=== PATIENT | male | born 1980 | race Caucasian/White ===

== ENCOUNTER 2018-09-14 09:54 | Emergency (ER) | payer BC ==
[2018-09-14 10:03] VITALS: BMI 44.6
--- NOTE | 2018-09-14 10:33 | PDOC ---
History of Present Illness - General Chief Complaint: Lightheaded Stated Complaint: DEHYDRATION / FATIGUE Time Seen by Provider: 09/14/18 10:32 - History of Present Illness Initial Comments: 09/14/18 11:26 38 year old man with a history of asthma who presents with 3 days of polydipsia and polyuria and 2 days of blurring of vision. He denies chest pain, lightheadedness, fever, n/v/d/c, shortness of breath, abdominal pain, burning with urination or blood in the urine. He denies every having these symptoms before. He denies headache or loss of consciousness. He states he was concerned about symptoms but waited to come to the ED bc he had work. He denies any other symptoms at bedside. PCP: none Past History - Past Medical History Allergies/Adverse Reactions: Allergies Allergy/AdvReac Type Severity Reaction Status Date / Time pollen extracts Allergy Verified 09/14/18 10:03 Home Medications: Ambulatory Orders Lancets 1 each MC BID #14 each 09/14/18 Miscellaneous Medical Supply [Glucometer Device] 1 each SUBCON ASDIR #1 kit Miscellaneous Medical Supply [Glucometer Test Strips #50] 1 each SQ ASDIR #1 box 09/14/18 metFORMIN HCL [Metformin HCl] 500 mg PO BID #14 tablet 09/14/18 metFORMIN HCL [Metformin HCl] 500 mg PO BID 14 Days tablet 09/14/18 COPD: No - Suicide/Smoking/Psychosocial Hx Smoking History: Never smoked *Physical Exam - Vital Signs Last Vital Signs Temp Pulse Resp BP Pulse Ox 97.6 F 92 H 18 140/89 97 09/14/18 10:00 09/14/18 10:00 09/14/18 10:00 09/14/18 10:00 09/14/18 10:00 Moderate Sedation - Procedure Monitoring Vital Signs: Procedure Monitoring Vital Signs Temperature 97.6 F 09/14/18 10:00 Pulse Rate 92 H 09/14/18 10:00 Respiratory Rate 18 09/14/18 10:00 Blood Pressure 140/89 09/14/18 10:00 O2 Sat by Pulse Oximetry (%) 97 09/14/18 10:00 ED Treatment Course - LABORATORY CBC & Chemistry Diagram: 09/14/18 11:08 09/14/18 11:08 Medical Decision Making - Medical Decision Making 09/14/18 11:28 38 year old man with a history of asthma who presents with 3 days of polydipsia and polyuria and 2 days of blurring of vision. He denies chest pain, lightheadedness, fever, n/v/d/c, shortness of breath, abdominal pain, burning with urination or blood in the urine. He denies every having these symptoms before. He denies headache or loss of consciousness. ED Course: consider new onset diabetes, hypercalcemia 09/14/18 11:45 *DC/Admit/Observation/Transfer Diagnosis at time of Disposition: Diabetes mellitus, new onset - Discharge Dispostion Disposition: HOME Condition at time of disposition: Stable Decision to Admit order: No - Prescriptions Prescriptions: Lancets 1 each MC BID #14 each metFORMIN HCL [Metformin HCl] 500 mg PO BID 14 Days tablet metFORMIN HCL [Metformin HCl] 500 mg PO BID #14 tablet Miscellaneous Medical Supply [Glucometer Device] 1 each SUBCON ASDIR #1 kit Miscellaneous Medical Supply [Glucometer Test Strips #50] 1 each SQ ASDIR #1 box - Referrals Referrals: [facility] [place] [facility] [place] [Provider Group] - Patient Instructions Printed Discharge Instructions: Type 2 Diabetes Additional Instructions: You were seen in the ED for complaints of excessive thirst, urination and blurred vision. In the ED you were evaluated with labwork and found to have diabetes. You were prescribed Metformin diabetes medication twice a day. Please check your blood sugar and avoid taking medication if your blood sugar is < 110. A glucometer, test strips and lancet have been sent to your pharmacy please use these as directed to check your blood sugar. You MUST follow up with [facility] tomorrow between 9am - 5pm. You have a work note attached that will dismiss you so that you may attend this appointment. Return to the ED immediately if you experience worsening thirst, urination, blurred vision, lightheadedness, palpitations or loss of consciousness. - Post Discharge Activity Forms/Work/School Notes: Back to Work
[2018-09-14] MEDS ORDERED: SODIUM CHLORIDE 1,000 ML IV SCH ×3 (10:45→14:45)
[2018-09-14 11:31] LABS: BASO % 0.7 % (0-2.0); EOS % 1.9 % (0-4.5); HEMATOCRIT 43.6 % (35.4-49); HEMOGLOBIN 15.2 GM/dL (11.7-16.9); LYMPH % 39.7 % (8-40); MCH 26.7 pg (25.7-33.7); MCHC 34.8 g/dl (32.0-35.9); MEAN CELL VOLUME 76.7 fl (80-96); MEAN PLT VOLUME 8.5 fl (7.5-11.1); MONO % 6.9 % (3.8-10.2); NEUT % 50.8 % (42.8-82.8); PLATELET COUNT 260 K/MM3 (134-434); RBC 5.68 M/mm3 (4.00-5.60); RDW 14.1 % (11.9-15.9); WHITE BLOOD COUNT 6.3 K/mm3 (4.0-10.0)
[2018-09-14 11:57] LABS: ALBUMIN 4.4 g/dl (3.4-5.0); ALK PHOS 192 U/L (45-117); ANION GAP 10 MMOL/L (8-16); BILIRUBIN,TOTAL 0.6 mg/dL (0.2-1); BLOOD UREA NITROGEN 14 mg/dL (7-18); CALCIUM 9.3 mg/dL (8.5-10.1); CHLORIDE 97 mmol/L (98-107); CO2 24 mmol/L (21-32); CREATININE 0.9 mg/dL (0.55-1.3); POTASSIUM 4.1 mmol/L (3.5-5.1); SGOT/AST 41 U/L (15-37); SGPT/ALT 94 U/L (13-61); SODIUM 131 mmol/L (136-145); TOT PROT 7.8 g/dl (6.4-8.2)
[2018-09-14 12:15] LABS: VENOUS PC02 47.3 mmHg (38-52); VENOUS PH 7.32 (7.32-7.42); VENOUS PO2 34.6 mmHg (28-48)
[2018-09-14 12:26] LABS: GLUCOSE,RANDOM 380 mg/dL (74-106)
[2018-09-14 13:11] LABS: MAGNESIUM 2.1 mg/dL (1.8-2.4); PHOSPHOROUS 4.2 mg/dL (2.5-4.9)
--- NOTE | 2018-09-14 13:46 | PDOC ---
Attending Attestation - Resident Resident Name: Radha Giordano - ED Attending Attestation I have performed the following: I have examined & evaluated the patient, The case was reviewed & discussed with the resident, I agree w/resident's findings & plan, Exceptions are as noted - Physicial Exam PE: 09/14/18 13:40 awake alert lungs clear bilaterally heart rrr no mrg abd soft nontender, obese. ext wwp no rash, no edema. nuero alert oriented x 3. moves all four ext. - Medical Decision Making 09/14/18 13:41 38 yo male with no pmhx here with c/o polyuria, polydyspia and blurry vision. no abd pain. no f/c. no mod factors. no n/v diarrhea. does have strong family h/ o diabetes. uncles with diabetes. no cp no sob. 09/14/18 13:43 pt with new onset diabetes. glucose 380, no gap. no renal dysfunction. mild LFT abnormality. HgA1c 9.3. trace acetone. given 2 L NS. d/w admitting team dr curiel. recommending dc with metformin 500 mg bid. pt to be seen day following in [facility]. pt seen by social work in ED to discuss medication, d/w pt regarding diet changes for diabetes. <Rita Byrne - Last Filed: 09/14/18 13:39> - HPI HPI: 09/14/18 13:51 The patient is a 38 year old male, with a significant past medical history of asthma, who presents to the emergency department with 3 days of extreme thirst and polyuria, and blurred vision, for 2 days. The patient notes he didnt come in to the ED earlier because of work, however he became concerned about the blurry vision and decided to come to the ED today. The patient denies any recent fevers, chills, headache or dizziness. Denies any recent nausea, vomit, diarrhea or constipation. Denies any recent chest pain or shortness of breath. Denies any hematuria or dysuria. Allergies: pollen extracts Family Hx of diabetes <Es Gallegos - Last Filed: 09/14/18 13:53> Attestations - Attestations 09/14/18 13:53 Documentation prepared by Es Gallegos, acting as product manager medical device for Rita Byrne MD. <Es Gallegos - Last Filed: 09/14/18 13:53>
[2018-09-14 13:50] LABS: URINE APPEARANCE CLEAR; URINE BILIRUBIN NEGATIVE (<2.0 mg/dL); URINE COLOR YELLOW; URINE GLUCOSE (UA) 3+ (NEGATIVE); URINE KETONE 1+ (NEGATIVE); URINE LEUK ESTERASE NEGATIVE (NEGATIVE); URINE NITRITE NEGATIVE (NEGATIVE); URINE PROTEIN 2+ (NEGATIVE); URINE UROBILINOGEN NEGATIVE mg/dL (0.2-1.0)
[2018-09-14 13:58] LABS: EPI CELLS RARE /HPF (FEW); URINE BACTERIA RARE /hpf (NONE SEEN); URINE MUCUS RARE
[2018-09-14] MEDS ORDERED: INSULIN REGULAR HUMAN 100 UNITS/ML *VIAL IVPUSH ONE (14:42)
[2018-09-14] MEDS ORDERED: INSULIN (NOVOLOG) ASPART 100 UNITS/ML 10ML VIAL ONE (14:57)
[2018-09-14] MEDS ORDERED: metFORMIN HCL 500 MG TABLET (FP) PO ONE (15:39)
[2018-09-14 16:07] VITALS: BP 136/82; PULSE 86; TEMP 98.1
--- NOTE | 2018-09-14 22:04 | EKG ---
Test Reason : Blood Pressure : / mmHG Vent. Rate : 074 BPM Atrial Rate : 074 BPM P-R Int : 172 ms QRS Dur : 142 ms QT Int : 398 ms P-R-T Axes : 017 003 -10 degrees QTc Int : 441 ms NORMAL SINUS RHYTHM RIGHT BUNDLE BRANCH BLOCK T WAVE ABNORMALITY, CONSIDER INFERIOR ISCHEMIA ABNORMAL ECG NO PREVIOUS ECGS AVAILABLE Confirmed by LUIS ARRIAZA MD ([id number]) on 09/14/2018 10:03:51 PM Referred By: Confirmed By:LUIS ARRIAZA MD
== END 2018-09-14 16:08 | disposition home or self-care (01) ==
LOC: JER 09:54
PROC: 3E033VG Introduction of Insulin into Peripheral Vein, Percutaneous Approach (ICD-10-PCS; principal; 2018-09-14)
DX: E11.9 Type 2 diabetes mellitus without complications (principal)
CPT/HCPCS: 36415; 80053; 81003; 81015; 82009; 82803; 82962; 83036; 83690; 83735; 84100; 84443; 85025; 93005; 93010; 99283-25; J7030

== ENCOUNTER 2018-11-25 17:28 | Emergency (ER) | payer BC ==
[2018-11-25] MEDS ORDERED: SODIUM CHLORIDE 1,000 ML IV STA (17:36)
--- NOTE | 2018-11-25 17:36 | PDOC ---
Rapid Medical Evaluation Time Seen by Provider: 11/25/18 17:34 Medical Evaluation: Allergies Allergy/AdvReac Type Severity Reaction Status Date / Time pollen extracts Allergy Verified 09/14/18 10:03 11/25/18 17:34 I have performed a brief in-person evaluation of this patient. The patient presents with a chief complaint of: Nausea with BS-303 at home. h/o NIDDM Pertinent physical exam findings: ABD SNTND. I have ordered the following: labs, urine The patient will proceed to the ED for further evaluation. Discharge Disposition - Diagnosis Nausea - Referrals - Patient Instructions - Post Discharge Activity
[2018-11-25 18:00] VITALS: BP 165/94; PULSE 97; TEMP 97.9
[2018-11-25 19:49] LABS: BASO % 0.6 % (0-2.0); EOS % 0.9 % (0-4.5); HEMATOCRIT 48.2 % (35.4-49); HEMOGLOBIN 15.6 GM/dL (11.7-16.9); LYMPH % 23.9 % (8-40); MCHC 32.4 g/dl (32.0-35.9); MEAN CELL VOLUME 80.3 fl (80-96); MEAN PLT VOLUME 8.8 fl (7.5-11.1); MONO % 5.1 % (3.8-10.2); NEUT % 69.5 % (42.8-82.8); PLATELET COUNT 265 K/MM3 (134-434); RDW 14.5 % (11.9-15.9); WHITE BLOOD COUNT 11.5 K/mm3 (4.0-10.0)
--- NOTE | 2018-11-25 20:08 | PDOC ---
History of Present Illness - General Chief Complaint: Blood Sugar Problem Stated Complaint: DIABETIC Time Seen by Provider: 11/25/18 17:34 - History of Present Illness Initial Comments: 11/25/18 20:01 38 year old man with a history of recently diagnosed DM with recently modified metformin dosage who presents with feeling weak and tired and running out of metformin. The patient recorded a blood sugar of 305. The patient was diagnosed with DM several weeks ago was initally started on 500 metformin BID, changed to 850 and increased to 1000 2 weeks ago, howver patient began experiencing muscle pain in the calves and stopped taking his 1000 dose, as he had some of the 850 left he kept taking the medicatino. He reports that on the 850 dose his am blood sugar ranges from 120-220. He cdoes not have any more metformin 850 and is too nbervous to take the 1000 dose. He has lost 65 pounds since Aug 2018 due to dietary changes after his DM diagnosis. He denies fever, chest pain, shortness of breath, n/v/d/c Admits to some gen abd pain. No other complaints. Past History - Past Medical History Allergies/Adverse Reactions: Allergies Allergy/AdvReac Type Severity Reaction Status Date / Time pollen extracts Allergy Verified 09/14/18 10:03 Home Medications: Ambulatory Orders Lancets 1 each MC BID #14 each 09/14/18 Miscellaneous Medical Supply [Glucometer Device] 1 each SUBCON ASDIR #1 kit Miscellaneous Medical Supply [Glucometer Test Strips #50] 1 each SQ ASDIR #1 box 09/14/18 metFORMIN HCL [Metformin HCl] 500 mg PO BID #14 tablet 09/14/18 metFORMIN HCL [Metformin HCl] 500 mg PO BID 14 Days tablet 09/14/18 metFORMIN HCL [Metformin HCl] 850 mg PO BID #14 tablet 11/25/18 COPD: No Diabetes: Yes - Immunization History Immunization Up to Date: Yes - Suicide/Smoking/Psychosocial Hx Smoking History: Never smoked Hx Alcohol Use: No Drug/Substance Use Hx: No *Physical Exam - Vital Signs Last Vital Signs Temp Pulse Resp BP Pulse Ox 97.9 F 97 H 18 165/94 100 11/25/18 17:35 11/25/18 17:35 11/25/18 17:35 11/25/18 17:35 11/25/18 17:35 ED Treatment Course - LABORATORY CBC & Chemistry Diagram: 11/25/18 19:00 11/25/18 19:00 - ADDITIONAL ORDERS Additional order review: 11/25/18 19:00 RBC 6.00 H MCV 80.3 MCHC 32.4 RDW 14.5 MPV 8.8 Neutrophils % 69.5 D Lymphocytes % 23.9 D Monocytes % 5.1 Eosinophils % 0.9 Basophils % 0.6 - Medications Given in the ED: ED Medications Discontinued Medications Generic Name Dose Route Start Last Admin Trade Name Nirmal PRN Reason Stop Dose Admin Sodium Chloride 1,000 mls @ 1,000 mls/hr 11/25/18 17:36 11/25/18 18:35 Normal Saline - IV 11/25/18 18:35 1,000 mls/hr .Q1H STA Administration Medical Decision Making - Medical Decision Making 11/25/18 20:30 38 year old man with a history of recently diagnosed DM with recently modified metformin dosage who presents with feeling weak and tired and running out of metformin. The patient recorded a blood sugar of 305. The patient was diagnosed with DM several weeks ago was initally started on 500 metformin BID, changed to 850 and increased to 1000 2 weeks ago, howver patient began experiencing muscle pain in the calves and stopped taking his 1000 dose, as he had some of the 850 left he kept taking the medicatino. He reports that on the 850 dose his am blood sugar ranges from 120-220. He cdoes not have any more metformin 850 and is too nbervous to take the 1000 dose. ED Course uncontrolled dm r/o dka vs hhs r/o uti labs w/ glucose 435 anion gap 16 will give ivf dose metformin 850 recheck bs *DC/Admit/Observation/Transfer Diagnosis at time of Disposition: Nausea, Uncontrolled diabetes mellitus - Discharge Dispostion Disposition: HOME Condition at time of disposition: Stable Decision to Admit order: No - Referrals - Patient Instructions Printed Discharge Instructions: DI for Hyperglycemia -- Adult Additional Instructions: You were seen in the ED for complaints of weakness and high blood sugar. In the ED you were evaluated with labwork and treated with IV fluids and Metformin. Your results were showed an improvement in blood sugar. There does not appear to be an acute need for immediate hospitalization. You are advised to follow up with your Primary Care Physician within 1 week. You were given a prescription for Metformin 850 and should take this medication as prescribed until you can be seen by your doctor. Return to the ED immediately if you experience worsening weakness, nausea, fatigue, chest pain, shortness of breath or fever. - Post Discharge Activity
[2018-11-25 20:22] LABS: URINE APPEARANCE CLEAR; URINE BILIRUBIN NEGATIVE (NEGATIVE); URINE COLOR YELLOW; URINE GLUCOSE (UA) 3+ (NEGATIVE); URINE KETONE 4+ (NEGATIVE); URINE LEUK ESTERASE NEGATIVE (NEGATIVE); URINE NITRITE NEGATIVE (NEGATIVE); URINE PROTEIN TRACE (NEGATIVE); URINE UROBILINOGEN 0.2 mg/dL (0.2-1.0)
[2018-11-25 20:25] LABS: ALBUMIN 4.5 g/dl (3.4-5.0); ALK PHOS 178 U/L (45-117); ANION GAP 16 MMOL/L (8-16); BILIRUBIN,TOTAL 0.5 mg/dL (0.2-1); BLOOD UREA NITROGEN 9 mg/dL (7-18); CALCIUM 9.4 mg/dL (8.5-10.1); CHLORIDE 103 mmol/L (98-107); CO2 15 mmol/L (21-32); CREATININE 1.1 mg/dL (0.55-1.3); POTASSIUM 4.1 mmol/L (3.5-5.1); SGOT/AST 8 U/L (15-37); SGPT/ALT 26 U/L (13-61); SODIUM 134 mmol/L (136-145); TOT PROT 8.2 g/dl (6.4-8.2)
[2018-11-25 20:28] LABS: GLUCOSE,RANDOM 435 mg/dL (74-106)
[2018-11-25] MEDS ORDERED: SODIUM CHLORIDE 1,000 ML IV SCH (20:45)
--- NOTE | 2018-11-25 21:52 | PDOC ---
*Physical Exam - Vital Signs Last Vital Signs Temp Pulse Resp BP Pulse Ox 97.9 F 97 H 18 165/94 100 11/25/18 17:35 11/25/18 17:35 11/25/18 17:35 11/25/18 17:35 11/25/18 17:35 ED Treatment Course - LABORATORY CBC & Chemistry Diagram: 11/25/18 19:00 11/25/18 19:00 - ADDITIONAL ORDERS Additional order review: Laboratory Results 11/25/18 11/25/18 19:00 18:29 Sodium 134 L Potassium 4.1 Chloride 103 Carbon Dioxide 15 L Anion Gap 16 BUN 9 Creatinine 1.1 Creat Clearance w eGFR 75.32 Random Glucose 435 H* Calcium 9.4 Total Bilirubin 0.5 AST 8 L ALT 26 Alkaline Phosphatase 178 H Total Protein 8.2 Albumin 4.5 Urine Color Yellow Urine Appearance Clear Urine pH 5.0 Ur Specific Cedar 1.033 Urine Protein Trace Urine Glucose (UA) 3+ H Urine Ketones 4+ H Urine Blood Negative Urine Nitrite Negative Urine Bilirubin Negative Urine Urobilinogen 0.2 Ur Leukocyte Esterase Negative 11/25/18 19:00 RBC 6.00 H MCV 80.3 MCHC 32.4 RDW 14.5 MPV 8.8 Neutrophils % 69.5 D Lymphocytes % 23.9 D Monocytes % 5.1 Eosinophils % 0.9 Basophils % 0.6 - Medications Given in the ED: ED Medications Discontinued Medications Generic Name Dose Route Start Last Admin Trade Name Freq PRN Reason Stop Dose Admin Sodium Chloride 1,000 mls @ 1,000 mls/hr 11/25/18 17:36 11/25/18 18:35 Normal Saline - IV 11/25/18 18:35 1,000 mls/hr .Q1H STA Administration Medical Decision Making - Medical Decision Making 11/25/18 21:51 Pt signed out to me by Dr. Giordano. 38M with recent changes in DM medications who presents with weakness and fatigue. BGM is 435 w/o AG. Will receive 1L fluids and will recheck. 11/25/18 23:42 Rpt FS 309. Will d/c with PCP f/u. *DC/Admit/Observation/Transfer Diagnosis at time of Disposition: Nausea, Uncontrolled diabetes mellitus - Discharge Dispostion Disposition: HOME Condition at time of disposition: Stable - Prescriptions Prescriptions: metFORMIN HCL [Metformin HCl] 850 mg PO BID #14 tablet - Referrals - Patient Instructions Printed Discharge Instructions: DI for Hyperglycemia -- Adult Additional Instructions: You were seen in the ED for complaints of weakness and high blood sugar. In the ED you were evaluated with labwork and treated with IV fluids and Metformin. Your results were showed an improvement in blood sugar. There does not appear to be an acute need for immediate hospitalization. You are advised to follow up with your Primary Care Physician within 1 week. You were given a prescription for Metformin 850 and should take this medication as prescribed until you can be seen by your doctor. Return to the ED immediately if you experience worsening weakness, nausea, fatigue, chest pain, shortness of breath or fever. - Post Discharge Activity
[2018-11-25] MEDS ORDERED: metFORMIN HCL 500 MG TABLET (FP) ONE (21:57)
[2018-11-25] MEDS ORDERED: SODIUM CHLORIDE 0.9% 1000 ML INFUS.BAG IV ONE (22:06)
--- NOTE | 2018-11-25 22:22 | PDOC ---
Documentation entered by Mio Kerr SCRIBE, acting as scribe for Cindy العلي MD. Cindy العلي MD: This documentation has been prepared by the Cirilo ramires Renju, SCRIBE, under my direction and personally reviewed by me in its entirety. I confirm that the documentation accurately reflects all work, treatment, procedures, and medical decision making performed by me. Attending Attestation - Resident Resident Name: Radha Giordano - ED Attending Attestation I have performed the following: I have examined & evaluated the patient, The case was reviewed & discussed with the resident, I agree w/resident's findings & plan, Exceptions are as noted - HPI HPI: 11/25/18 21:36 Patient is a 38 year old male with a past medical history of NIDDM (diagnosed August) who presents to the emergency department for evaluation of elevated blood glucose. Patient reports increasing lethargy in the last week. He currently endorses nausea without emesis. Patient states he has changed his prescribed doses of metformin from 500mg, 850mg, to 1000mg last week. Patient notes he developed bilateral calf pain which started yesterday, prompting him to switch to back to 850mg. He states he visits the ED today for further evaluation due to persistent lethargy and having a BGL of 305 prior to arrival. Endorses 65lb weight loss due to dietary changes since August. Denies chest pain, SOB, vomiting, fevers, and chills. - Physicial Exam PE: 11/25/18 22:09 wnwd 38 yo male with c/o hyperglycemia head ncat neck supple lungs cta b/l cvs [id number] abd nontender,+bs extremities no edema,full range of motion skin warm and dry neuro axox3,ambulatory psych appropriate - Medical Decision Making 11/25/18 22:16 after second liter of IVF,will recheck bgm and discharge
--- NOTE | 2018-11-26 08:28 | EKG ---
Test Reason : Blood Pressure : / mmHG Vent. Rate : 086 BPM Atrial Rate : 086 BPM P-R Int : 144 ms QRS Dur : 148 ms QT Int : 468 ms P-R-T Axes : 010 -39 008 degrees QTc Int : 560 ms NORMAL SINUS RHYTHM LEFT AXIS DEVIATION RIGHT BUNDLE BRANCH BLOCK ABNORMAL ECG WHEN COMPARED WITH ECG OF 14-SEP-2018 11:11, QRS AXIS SHIFTED LEFT QT HAS LENGTHENED Confirmed by SHAUNA CABRERA, SUHAS ([id number]) on 11/26/2018 8:27:57 AM Referred By: Confirmed By:SUHAS VILLATORO MD
== END 2018-11-25 23:58 | disposition home or self-care (01) ==
LOC: JER 17:28
PROC: 3E0337Z Introduction of Electrolytic and Water Balance Substance into Peripheral Vein, Percutaneous Approach (ICD-10-PCS; principal; 2018-11-25)
DX: E11.65 Type 2 diabetes mellitus with hyperglycemia (principal); Z79.84 Long term (current) use of oral hypoglycemic drugs
CPT/HCPCS: 36415; 80053; 81003; 82962; 85025; 87086; 93005; 93010; 99282-25; J7030

== ENCOUNTER 2018-11-27 00:07 | Inpatient (IN) | payer BC ==
--- NOTE | 2018-11-27 01:21 | PDOC ---
History of Present Illness - General Stated Complaint: NAUSEA,VOMITING,PAIN Time Seen by Provider: 11/27/18 01:17 History Source: Patient, Old Records Exam Limitations: No Limitations - History of Present Illness Initial Comments: 11/27/18 02:42 HISTORY OF PRESENT ILLNESS: 38-year-old male recently diagnosed with NIDDM on metformin presents emergency department for evaluation of abdominal pain, nausea and vomiting throughout the day today. He denies fevers and reports blood sugar at home 300. Patient was seen and evaluated in this ER yesterday for similar complaints. Patient was found to be hyperglycemic was given 2 L of fluid and discharged. Patient denies any diarrhea, rectal bleeding, dysuria, hematuria, difficulty with micturition, fevers or chills. Patient endorses 65 pound weight loss over 3 months since changing his diet after diagnosis. No recent travel or sick contacts. PAST MEDICAL HISTORY: NIDDM SURGICAL HISTORY: Denies ALLERGIES: No known drug allergies REVIEW OF SYSTEMS General/Constitutional: Denies fever or chills. Denies weakness, weight change. HEENT: Denies change in vision. Denies ear pain or discharge. Denies sore throat. Cardiovascular: Denies chest pain or shortness of breath. Respiratory: Denies cough, wheezing, or hemoptysis. Gastrointestinal: see HPI Genitourinary: Denies dysuria, frequency, or change in urination. Musculoskeletal: Denies joint or muscle swelling or pain. Denies neck or back pain. Skin and breasts: Denies rash or easy bruising. Neurologic: Denies headache, vertigo, loss of consciousness, or loss of sensation. Psychiatric: Denies depression or anxiety. Endocrine: Denies increased thirst. Denies abnormal weight change. Hematologic/Lymphatic: Denies anemia, easy bleeding, or history of blood clots. Allergic/Immunologic: Denies hives or skin allergy. Denies latex allergy. PHYSICAL EXAM General Appearance: Well-appearing, appropriately dressed. No apparent distress , no intoxication. HEENT: EOMI, PERRLA, normal ENT inspection, normal voice, TMs normal, pharynx normal. No conjunctival pallor. No photophobia, scleral icterus. Neck: Supple. Trachea midline. No tenderness, rigidity, carotid bruit, stridor , lymphadenopathy, or thyromegaly. Respiratory/Chest: Lungs CTAB. No shortness of breath, chest tenderness, respiratory distress, accessory muscle use. No crackles, rales, rhonchi, stridor , wheezing, dullness Cardiovascular: RRR. S1, S2. No JVD, murmur, bradycardia, tachycardia. Vascular Pulses: Dorsalis-Pedis (R): 2+, Dorsalis-Pedis (L): 2+ Gastrointestinal/Abdominal: Normal bowel sounds. Abdomen soft, non-distended. No tenderness or rebound tenderness. No organomegaly, pulsatile mass, guarding, hernia, hepatomegaly, splenomegaly. Lymphatic: No adenopathy, tenderness. Musculoskeletal/Extremities: Normal inspection. FROM of all extremities, normal capillary refill. Pelvis Stable. No CVA tenderness. No tenderness to extremities, pedal edema, swelling, erythema or deformity. Integumentary: Appropriate color, dry, warm. No cyanosis, erythema, jaundice or rash Neurologic: shells inspector II-XII intact. Fully oriented, alert. Appropriate mood/affect. Motor strength 5/5. No appreciable EOM palsy, facial droop or sensory deficit. Past History - Past Medical History Allergies/Adverse Reactions: Allergies Allergy/AdvReac Type Severity Reaction Status Date / Time pollen extracts Allergy Verified 11/27/18 01:42 Home Medications: Ambulatory Orders metFORMIN HCL [Metformin HCl] 850 mg PO BID #14 tablet 11/25/18 COPD: No Diabetes: Yes - Immunization History Immunization Up to Date: Yes - Suicide/Smoking/Psychosocial Hx Smoking History: Never smoked Hx Alcohol Use: No Drug/Substance Use Hx: No ED Treatment Course - LABORATORY CBC & Chemistry Diagram: 11/27/18 09:27 11/27/18 19:00 Medical Decision Making - Critical Care Time Total Critical Care Time (minutes): 45 Critical Care Statement: The care of this patient involved high complexity decision making to prevent further life threatening deterioration of the patient 's condition and/or to evaluate & treat vital organ system(s) failure or risk of failure. - Medical Decision Making 11/27/18 02:45 A/P: 38-year-old male with abdominal pain nausea and vomiting for 1 day Normoactive bowel sounds Abdomen soft nontender nondistended Differential diagnosis includes but is not limited to- hyperglycemia, honk, DKA , gastroparesis, mesenteric ischemia, colitis Mesenteric ischemia less likely given patient has a benign abdominal exam Labs including acetone and VBG BGM Lactic acid Urine Normal saline 1 IV Reassess 11/27/18 04:43 Case discussed with ICU resident Dr. Connlely who will evaluate patient. Case has been discussed with Dr. Sol of the hospitalist team. Patient is accepted to their service pending ICU evaluation for placement. Patient's repeat fingerstick is 261. 11/27/18 04:46 *DC/Admit/Observation/Transfer Diagnosis at time of Disposition: DKA (diabetic ketoacidoses) Qualifiers: Diabetes mellitus type: type 2 Diabetes mellitus complication detail: without coma Qualified Code(s): E11.10 - Type 2 diabetes mellitus with ketoacidosis without coma - Discharge Dispostion Condition at time of disposition: Fair Decision to Admit order: Yes - Referrals - Patient Instructions - Post Discharge Activity
--- NOTE | 2018-11-27 01:22 | PDOC ---
ED Treatment Course - LABORATORY CBC & Chemistry Diagram: 11/27/18 02:09 11/27/18 02:09 Medical Decision Making - Medical Decision Making 11/27/18 01:21 Patient seen by the advanced practice provider under my direct supervision. Ancillary testing reviewed as necessary. I agree with plan as outlined by the advanced practice provider. *DC/Admit/Observation/Transfer Diagnosis at time of Disposition: Vomiting - Discharge Dispostion Condition at time of disposition: Fair - Referrals - Patient Instructions - Post Discharge Activity
[2018-11-27] MEDS ORDERED: SODIUM CHLORIDE 1,000 ML IV STA ×2 (01:28→03:28)
[2018-11-27 02:22] LABS: VENOUS PC02 27.7 mmHg (41-51); VENOUS PO2 40.8 mmHg (30-40)
[2018-11-27 02:24] LABS: BASO % 0.7 % (0-2.0); EOS % 0.1 % (0-4.5); HEMOGLOBIN 15.1 GM/dL (11.7-16.9); LYMPH % 14.4 % (8-40); MCH 25.9 pg (25.7-33.7); MCHC 32.2 g/dl (32.0-35.9); MEAN CELL VOLUME 80.4 fl (80-96); MEAN PLT VOLUME 9.4 fl (7.5-11.1); MONO % 5.8 % (3.8-10.2); PLATELET COUNT 284 K/MM3 (134-434); RBC 5.84 M/mm3 (4.00-5.60); RDW 14.9 % (11.9-15.9); WHITE BLOOD COUNT 14.9 K/mm3 (4.0-10.0)
[2018-11-27 02:33] LABS: VENOUS PH 7.14 (7.31-7.41)
[2018-11-27 03:43] LABS: ALBUMIN 4.4 g/dl (3.4-5.0); ALK PHOS 171 U/L (45-117); ANION GAP 19 MMOL/L (8-16); BILIRUBIN,TOTAL 0.5 mg/dL (0.2-1); BLOOD UREA NITROGEN 5 mg/dL (7-18); CHLORIDE 106 mmol/L (98-107); CO2 10 mmol/L (21-32); POTASSIUM 4.1 mmol/L (3.5-5.1); SGOT/AST 9 U/L (15-37); SGPT/ALT 26 U/L (13-61); SODIUM 134 mmol/L (136-145); TOT PROT 8.3 g/dl (6.4-8.2)
[2018-11-27 03:44] LABS: GLUCOSE,RANDOM 353 mg/dL (74-106)
[2018-11-27 03:45] LABS: ACETONE SERUM POSITIVE MODERATE 2+ (NEGATIVE)
[2018-11-27] MEDS ORDERED: INSULIN REGULAR HUMAN 100 UNITS/ML *VIAL SQ ONE (03:49)
[2018-11-27] MEDS ORDERED: INSULIN REGULAR HUMAN 100 UNITS/ML *VIAL IVPUSH ONE (03:49)
[2018-11-27] MEDS ORDERED: INSULIN REGULAR 100 UNITS in SODIUM CHLORIDE 99 ML IVPB SCH (04:00)
[2018-11-27] MEDS ORDERED: INSULIN REGULAR HUMAN 100 UNITS/ML *VIAL ONE ×2 (04:04→04:20)
--- NOTE | 2018-11-27 04:30 | PN ---
Teaching Attending Note Name of Resident: Felipe Cash ATTENDING PHYSICIAN STATEMENT I saw and evaluated the patient. I reviewed the resident's note and discussed the case with the resident. I agree with the resident's findings and plan as documented. SUBJECTIVE: Patient is a 38-year-old man with PMH of Asthma and recently diagnosed with NIDDM (August 2018) on metformin presents to the ER for evaluation of abdominal pain, nausea and vomiting throughout the day today. He denies fevers and reports blood sugar at home 300. Patient was seen and evaluated in this ER yesterday for similar complaints. Patient was found to be hyperglycemic was given 2 L of fluid and discharged. Patient denies any diarrhea, rectal bleeding , dysuria, hematuria, difficulty with urination, fevers or chills. Patient says he has had unintended 65 pound weight loss over 3 months since changing his diet after the diabetes diagnosis. Started having upper abdominal and chest pain after many bouts of vomiting. Nonsmoker and denies illicit drug use. with 3 children and works as a building maintenance controller for [employer]. OBJECTIVE: Alert Vital Signs Period Temp Pulse Resp BP Sys/Estrada Pulse Ox Last 24 Hr 97.5 F 101 16 133/91 99-99 HEENT: No Jaundice, eye redness or discharge, PERRLA, EOMI. Normocephalic, atraumatic. External ears are normal and hearing is grossly intact. No nasal discharge. Neck: Supple, nontender. No palpable adenopathy or thyromegaly. No JVD Chest: Good effort. Clear to auscultation and percussion. Heart: Regular. No S3, rub or murmur Abdomen: Not distended, soft, nontender and no HSM. No rebound or guarding. Normal bowel sounds. Ext: Peripheral pulses intact. No leg edema. Skin: Warm and dry. No petechiae, rash or ecchymosis. Neuro: Alert. Oriented x3. CN 2-12 grossly intact. Sensation grossly intact in all four extremities and DTR are symmetric. Psych: Appropriate mood and affect. Good insight. Current Medications Generic Name Dose Route Start Last Admin Trade Name Freq PRN Reason Stop Dose Admin Insulin Human Regular 100 100 mls @ 10.43 mls/hr 11/27/18 04:00 units/ Sodium Chloride IVPB TITR BRITTNY Protocol 0.1 UNITS/KG/HR Potassium Chloride 10 meq 11/27/18 04:23 Potassium Chloride 10 Meq Premix Ivpb - IVPB 11/27/18 05:24 Q1H [facility] Home Medications Medication Instructions Recorded metFORMIN HCL [Metformin HCl] 850 mg PO BID #14 tablet 11/25/18 Abnormal Lab Results 11/27/18 11/27/18 11/27/18 02:02 02:09 02:57 WBC 14.9 H RBC 5.84 H Absolute Neuts (auto) 11.8 H VBG pH 7.14 L* POC VBG pCO2 27.7 L POC VBG pO2 40.8 H VBG HCO3 9.1 L VBG Base Excess -19.3 L Sodium 134 L Carbon Dioxide 10 L Anion Gap 19 H BUN 5 L Random Glucose 353 H* AST 9 L Alkaline Phosphatase 171 H Total Protein 8.3 H ASSESSMENT AND PLAN: 1. DKA - No obvious precipitating factor. Will hold metformin and treat with IV insulin drip, IV fluids and monitor BMP, electrolytes and glucose according to the DKA protocol in the ICU. Commence treatment with IV KCL, IV protonix and get CXR and urinalysis. Leukocytosis likely due to stress. EKG shows NSR with RBBB with no significant ST-T wave changes. Will provide comprehensive diabetes care with patient teaching and counseling about the importance of adherence to prescribed diabetes regimen, euglycemia, eye care and foot care. Consult Endocrine. Patient alerted that he will need a regimen that includes insulin upon discharge. 2. Obesity Counseled on the risks associated with obesity. Will provide patient all the necessary assistance, counseling and positive reinforcement to facilitate weight loss. Consult platform stapler. 3. Undiagnosed Hypertension - Will monitor BP closely. May need to start antihypertensive drugs before discharge - preferably an ACEI or ARB. In the meantime nonpharmacologic measures to control hypertension like weight loss, salt restriction and exercise discussed. 4. DVT prophylaxis - Lovenox 40 mg SQ q 24 hours. 5. Advance directives - Full code
[2018-11-27] MEDS ORDERED: ONDANSETRON 4 MG/2 ML VIAL IVPUSH PRN (04:56)
--- NOTE | 2018-11-27 04:56 | CONSULT ---
Consultation: REQUESTING PROVIDER:ED team CONSULT REQUEST: We have been asked to medically evaluate this patient for (DKA) . HISTORY OF PRESENT ILLNESS: 38 year old male with recent diagnosis of DM on metformin BID presented to ED with one day history of sever abdominal pain , N/V x5 and small bloody vomiting was found to have BGM 350, Acetone positive and Anion gap of 18 admitted to ICU for DKA treatment denies any fever, chills, chest pain , cough, recent cold, denies any D/C or urinary symptoms reports 60 pound weight loss in last 2 months , generalized weakness ,and fatigue , polyuria , polydipsea denies any sick contact , his daughter has recent allergy to pollen PMH: DM PSH: appendectomy 2016 FH: Father cardiac Bypass , Mother HTN SH: denies smoking , drink beers socially last drink aonth ago, denies any drug abuse work in [employer] , with 3 kids Allergies: NKDA Meds: metformin 850 BID REVIEW OF SYSTEMS: CONSTITUTIONAL: Absent: fever, chills, diaphoresis, generalized weakness, malaise, loss of appetite, weight change HEENT: Absent: rhinorrhea, nasal congestion, throat pain, throat swelling, difficulty swallowing, mouth swelling, ear pain, eye pain, visual changes CARDIOVASCULAR: Absent: chest pain, syncope, palpitations, irregular heart rate, lightheadedness , peripheral edema RESPIRATORY: Absent: cough, shortness of breath, dyspnea with exertion, orthopnea, wheezing, stridor, hemoptysis GASTROINTESTINAL: Absent: abdominal pain, abdominal distension, nausea, vomiting, diarrhea, constipation, melena, hematochezia GENITOURINARY: Absent: dysuria, frequency, urgency, hesitancy, hematuria, flank pain, genital pain MUSCULOSKELETAL: Absent: myalgia, arthralgia, joint swelling, back pain, neck pain SKIN: Absent: rash, itching, pallor HEMATOLOGIC/IMMUNOLOGIC: Absent: easy bleeding, easy bruising, lymphadenopathy, frequent infections ENDOCRINE: Absent: unexplained weight gain, unexplained weight loss60 pound in 2 months , heat intolerance, cold intolerance NEUROLOGIC: Absent: headache, focal weakness or paresthesias, dizziness, unsteady gait, seizure, mental status changes, bladder or bowel incontinence PSYCHIATRIC: Absent: anxiety, depression, suicidal or homicidal ideation, hallucinations. PHYSICAL EXAMINATION Vital Signs - 24 hr 11/27/18 11/27/18 00:07 03:20 Temperature 97.5 F L Pulse Rate 101 H Respiratory 16 Rate Blood Pressure 133/91 O2 Sat by Pulse 99 99 Oximetry (%) GENERAL: Awake, alert, and fully oriented, in no acute distress. HEAD: Normal with no signs of trauma. EYES: Pupils equal, round and reactive to light, extraocular movements intact, EARS, NOSE, THROAT: Ears normal, nares patent, oropharynx clear without exudates. Moist mucous membranes. NECK: supple LUNGS: Breath sounds equal, clear to auscultation bilaterally. No wheezes, and no crackles. HEART: Regular rate and rhythm, normal S1 and S2 without murmur, rub or gallop. ABDOMEN: obese , Soft, diffuse tenderness , normoactive bowel sounds, MUSCULOSKELETAL: Normal range of motion at all joints. No bony deformities or tenderness. No CVA tenderness. UPPER EXTREMITIES: 2+ pulses, warm, well-perfused. No cyanosis. No clubbing. Cap refill <2 seconds. No peripheral edema. LOWER EXTREMITIES: 2+ pulses, warm, well-perfused. No calf tenderness. No peripheral edema. NEUROLOGICAL: no focal deficit . Normal speech. Normal gait. PSYCHIATRIC: Cooperative. SKIN: Warm, dry, normal turgor, Laboratory Results - last 24 hr 11/27/18 11/27/18 11/27/18 02:02 02:09 02:09 WBC 14.9 H RBC 5.84 H Hgb 15.1 Hct 47.0 MCV 80.4 MCH 25.9 MCHC 32.2 RDW 14.9 Plt Count 284 MPV 9.4 Absolute Neuts (auto) 11.8 H Neutrophils % 79.0 Lymphocytes % 14.4 D Monocytes % 5.8 Eosinophils % 0.1 D Basophils % 0.7 Nucleated RBC % 0 VBG pH 7.14 L* POC VBG pCO2 27.7 L POC VBG pO2 40.8 H VBG HCO3 9.1 L VBG O2 Sat (John) 71.4 VBG Base Excess -19.3 L Sodium Cancelled Potassium Cancelled Chloride Cancelled Carbon Dioxide Cancelled Anion Gap Cancelled BUN Cancelled Creatinine Cancelled Est GFR (CKD-EPI)AfAm Cancelled Est GFR (CKD-EPI)NonAf Cancelled POC Glucometer Random Glucose Cancelled Lactic Acid Calcium Cancelled Total Bilirubin Cancelled AST Cancelled ALT Cancelled Alkaline Phosphatase Cancelled Total Protein Cancelled Albumin Cancelled Acetone, Qual 11/27/18 11/27/18 11/27/18 02:09 02:57 02:57 WBC RBC Hgb Hct MCV MCH MCHC RDW Plt Count MPV Absolute Neuts (auto) Neutrophils % Lymphocytes % Monocytes % Eosinophils % Basophils % Nucleated RBC % VBG pH POC VBG pCO2 POC VBG pO2 VBG HCO3 VBG O2 Sat (John) VBG Base Excess Sodium 134 L Potassium 4.1 Chloride 106 Carbon Dioxide 10 L Anion Gap 19 H BUN 5 L Creatinine 1.0 Est GFR (CKD-EPI)AfAm 110.94 Est GFR (CKD-EPI)NonAf 95.72 POC Glucometer Random Glucose 353 H* Lactic Acid 1.3 Calcium 9.0 Total Bilirubin 0.5 AST 9 L ALT 26 Alkaline Phosphatase 171 H Total Protein 8.3 H Albumin 4.4 Acetone, Qual Cancelled Positive moderate 2+ 11/27/18 11/27/18 03:05 04:33 WBC RBC Hgb Hct MCV MCH MCHC RDW Plt Count MPV Absolute Neuts (auto) Neutrophils % Lymphocytes % Monocytes % Eosinophils % Basophils % Nucleated RBC % VBG pH POC VBG pCO2 POC VBG pO2 VBG HCO3 VBG O2 Sat (John) VBG Base Excess Sodium Potassium Chloride Carbon Dioxide Anion Gap BUN Creatinine Est GFR (CKD-EPI)AfAm Est GFR (CKD-EPI)NonAf POC Glucometer 336 261 Random Glucose Lactic Acid Calcium Total Bilirubin AST ALT Alkaline Phosphatase Total Protein Albumin Acetone, Qual Active Medications Generic Name Dose Route Start Last Admin Trade Name Freq PRN Reason Stop Dose Admin Insulin Human Regular 100 100 mls @ 10.43 mls/hr 11/27/18 04:00 units/ Sodium Chloride IVPB TITR BRITTNY Protocol 0.1 UNITS/KG/HR Potassium Chloride 10 meq/ 1,005 mls @ 125 mls/hr 11/27/18 05:00 Dextrose/Sodium Chloride IVPB ASDIR BRITTNY Potassium Chloride 10 meq 11/27/18 04:23 Potassium Chloride 10 Meq Premix Ivpb - IVPB 11/27/18 05:24 Q1H BRITTNY CBC, BMP 11/27/18 02:09 11/27/18 02:57 ASSESSMENT/PLAN: 38 year old male with recent diagnosis of DM on metformin BID presented to ED with one day history of sever abdominal pain , N/V x5 and small bloody vomiting was found to have BGM 350, Acetone positive and Anion gap of 18 admitted to ICU for DKA treatment # DKA due to new onset DM diagnosis vs r.o infection vs non comliance * recently diagnosed with diabetes on Sep 10, started on metformin 500 BID increased to 850 BID , he could not tolerate 1000BID * last A1c 9.1 * presented today with one day history of sever abdominal pain N/V x5 followed by bloody vomiting small cup in amount * GLucose 350 and acteone positive , K 4.1 * given NS 2 L bolus in ED and IV insulin 10 units , repeat BGM 251 will start pt on D5/NS with potassium @ 150 * start insulin drip @ 0.1 /kg/hr till gap closed and bridge him with Ins SQ * start feeding as tolerated (denies any current nausea ) * BGM Q 1 hr * BMP Q2-4 hr with close monitor to K * I gave 20 KCl IV in addition to20 kcl with fluids * UA ,urine tox , urine ketone , beta hydroxy buterate * serum ketone , * osmolality serum and urine * cxr * nuclear monitoring technician, capnography, pulse oxy monitor # Long QTC 556 * avoid meds that cause prlongation Zofran , metoclopramide # Leuckocytosis reactive vs unknown source of infection * pt is afebrile, monitor of abx # FEN * D5/NS with Kcl * monitor lytes * Diabetic diet # DVTS proph scds , early ambulation , lovenox 40 SQ daily # GI proph : [place] # Dispo * Monitor in ICU Dispo: We will continue to follow the patient. Thank you for this consultative opportunity. Visit type - Emergency Visit Emergency Visit: Yes ED Registration Date: 11/27/18 Care time: The patient presented to the Emergency Department on the above date and was hospitalized for further evaluation of their emergent condition. - New Patient This patient is new to me today: Yes Date on this admission: 11/27/18 - Critical Care Critical Care patient: Yes Total Critical Care Time (in minutes): 45 Critical Care Statement: The care of this patient involved high complexity decision making to prevent further life threatening deterioration of the patient 's condition and/or to evaluate & treat vital organ system(s) failure or risk of failure.
[2018-11-27] MEDS ORDERED: POTASSIUM CHLORIDE 10 MEQ in DEXTROSE 5%-NORMAL SALINE 1,000 ML IVPB SCH ×2 (05:00→05:09)
--- NOTE | 2018-11-27 05:19 | HP ---
CHIEF COMPLAINT: abdominal pain and nausea PCP: Javad HISTORY OF PRESENT ILLNESS: Patient is a 38 y/o male with a history of NIDDM (recent diagnosis in August) who presents today for abdominal pain and nausea. He has been feeling like this for the last few days and it has been worsening. He knows his sugars have been high and he has been taking his metformin. Patient has no family history of diabetes. He denies any other medical problems. He has been having trouble keeping food down because of the nausea. Denies chest pain, headache, shortness of breath, fever, or chills. ER course was notable for: (1)IV insulin 10 (2) (3) Recent Travel: denies PAST MEDICAL HISTORY: NIDDM PAST SURGICAL HISTORY: appendectomy Social History: Smoking: denies Alcohol: denies Drugs: denies Family History: Allergies pollen extracts Allergy (Verified 11/27/18 01:42) HOME MEDICATIONS: Home Medications Medication Instructions Recorded metFORMIN HCL [Metformin HCl] 850 mg PO BID #14 tablet 11/25/18 REVIEW OF SYSTEMS presents with: abdominal pain, nausea, one episode of NBNB vomiting denies: chest pain, shortness of breath, dizziness, fever, chills PHYSICAL EXAMINATION Vital Signs Temperature 97.5 F L 11/27/18 00:07 Pulse Rate 101 H 11/27/18 00:07 Respiratory Rate 16 11/27/18 00:07 Blood Pressure 133/91 11/27/18 00:07 O2 Sat by Pulse Oximetry (%) 99 11/27/18 03:20 GENERAL: Awake, alert, and fully oriented, in no acute distress. HEAD: Normal with no signs of trauma. EYES: Pupils equal, round and reactive to light, extraocular movements intact, EARS, NOSE, THROAT: Moist mucous membranes. LUNGS: Breath sounds equal, clear to auscultation bilaterally. No wheezes, and no crackles. No accessory muscle use. HEART: Regular rate and rhythm, normal S1 and S2 without murmur, rub or gallop. ABDOMEN: Soft, nontender, not distended, normoactive bowel sounds, no guarding, no rebound, no masses. No CVA tenderness. LOWER EXTREMITIES: 2+ pulses, warm, well-perfused. No calf tenderness. No peripheral edema. NEUROLOGICAL: Cranial nerves II-XII intact. Normal speech. Normal gait. PSYCHIATRIC: Cooperative. Good eye contact. Appropriate mood and affect. SKIN: Warm, dry, normal turgor, no rashes or lesions noted, normal capillary refill. CBCD WBC 14.9 K/mm3 (4.0-10.0) H 11/27/18 02:09 RBC 5.84 M/mm3 (4.00-5.60) H 11/27/18 02:09 Hgb 15.1 GM/dL (11.7-16.9) 11/27/18 02:09 Hct 47.0 % (35.4-49) 11/27/18 02:09 MCV 80.4 fl (80-96) 11/27/18 02:09 MCHC 32.2 g/dl (32.0-35.9) 11/27/18 02:09 RDW 14.9 % (11.9-15.9) 11/27/18 02:09 Plt Count 284 K/MM3 (134-434) 11/27/18 02:09 MPV 9.4 fl (7.5-11.1) 11/27/18 02:09 CMP Sodium 134 mmol/L (136-145) L 11/27/18 02:57 Potassium 4.1 mmol/L (3.5-5.1) 11/27/18 02:57 Chloride 106 mmol/L (98-107) 11/27/18 02:57 Carbon Dioxide 10 mmol/L (21-32) L 11/27/18 02:57 Anion Gap 19 MMOL/L (8-16) H 11/27/18 02:57 BUN 5 mg/dL (7-18) L 11/27/18 02:57 Creatinine 1.0 mg/dL (0.55-1.3) 11/27/18 02:57 Calcium 9.0 mg/dL (8.5-10.1) 11/27/18 02:57 Total Bilirubin 0.5 mg/dL (0.2-1) 11/27/18 02:57 AST 9 U/L (15-37) L 11/27/18 02:57 ALT 26 U/L (13-61) 11/27/18 02:57 Alkaline Phosphatase 171 U/L (45-117) H 11/27/18 02:57 Total Protein 8.3 g/dl (6.4-8.2) H 11/27/18 02:57 Albumin 4.4 g/dl (3.4-5.0) 11/27/18 02:57 ASSESSMENT/PLAN: Patient is a 38 y/o male with a history of NIDDM who is admitted for DKA. #DKA - anion gap acidosis 19, glucose 353, k 4.1, acetone 2+ positive - given 10 IV insulin, on insulin drip - 20 meq K ordered - repeat BGM finger stick 260, D5 1/2 NS @ 150 - BGM q1h - BMP q 2h , monitor Bicarb closely - continue insulin drip until anion gap closed, at that point initiate subq - consult Dr. Stock, patient needs diabetic teaching and follow up - f/u UA and CXR to r/o infectious source, WBC elevated at 14.9 likely 2/2 to stress - EKG RBB, no ST elevations or changes - QTC > 500, do not give Zofran #DVT ppx - Lovenox 40 sq daily FEN - daibetic diet - continue fluids D5 1/2 NS @ 150 - monitor K closely - monitor BP Dispo: monitor in ICU while on insulin drip Visit type - Emergency Visit Emergency Visit: Yes ED Registration Date: 11/27/18 Care time: The patient presented to the Emergency Department on the above date and was hospitalized for further evaluation of their emergent condition. - New Patient This patient is new to me today: Yes Date on this admission: 11/27/18 - Critical Care Critical Care patient: Yes Total Critical Care Time (in minutes): 35 Critical Care Statement: The care of this patient involved high complexity decision making to prevent further life threatening deterioration of the patient 's condition and/or to evaluate & treat vital organ system(s) failure or risk of failure.
[2018-11-27] MEDS ORDERED: D5-NS + 20 MEQ KCL - 20 MEQ/1,000 ML INFUS.BAG IV SCH ×2 (05:30→14:13)
[2018-11-27] MEDS ORDERED: KCL 10 MEQ IVPB 10 MEQ/100 ML INFUS.BAG IVPB ONE ×2 (05:59→08:07)
[2018-11-27] MEDS: POTASSIUM CHLORIDE 10 MEQ PREMIX IVPB (POTASSIUM RIDER) IVPB SCH ×2 (06:02→08:17)
[2018-11-27 06:03] LABS: ANION GAP 15 MMOL/L (8-16); BLOOD UREA NITROGEN 4 mg/dL (7-18); CALCIUM 8.1 mg/dL (8.5-10.1); CHLORIDE 112 mmol/L (98-107); CO2 11 mmol/L (21-32); CREATININE 0.8 mg/dL (0.55-1.3); GLUCOSE,RANDOM 204 mg/dL (74-106); PHOSPHOROUS 1.3 mg/dL (2.5-4.9); POTASSIUM 3.5 mmol/L (3.5-5.1); SODIUM 139 mmol/L (136-145)
[2018-11-27 06:07] LABS: COCAINE, UR NEGATIVE ng/ml (CUTOFF=300); METHADONE, UR NEGATIVE ng/ml (CUTOFF=300); OPIATES, URI NEGATIVE ng/ml (CUTOFF=300); PHENCYCLIDINE,URINE NEGATIVE ng/ml (CUTOFF=25); URINE AMPHETAMINES NEGATIVE ng/ml (CUTOFF=500); URINE BARBITURATES NEGATIVE ng/ml (CUTOFF=200); URINE BENZODIAZEPINES NEGATIVE ng/ml (CUTOFF=200)
[2018-11-27] MEDS ORDERED: MAG HYDROX/AL HYDROX/SIMETH 30 ML UNIT-DOSE CUP PO ONE (06:15)
[2018-11-27 06:17] LABS: EPI CELLS 0.4 /HPF (0-5/HPF); URINE APPEARANCE CLEAR; URINE BACTERIA 0.3 /hpf (NEGATIVE); URINE BILIRUBIN NEGATIVE (NEGATIVE); URINE CASTS 3 /lpf (0-8); URINE COLOR YELLOW; URINE GLUCOSE (UA) 3+ (NEGATIVE); URINE KETONE 4+ (NEGATIVE); URINE LEUK ESTERASE NEGATIVE (NEGATIVE); URINE NITRITE NEGATIVE (NEGATIVE); URINE PROTEIN TRACE (NEGATIVE); URINE RBC 2 /hpf (0-4); URINE UROBILINOGEN 0.2 mg/dL (0.2-1.0); URINE WBC 0 /hpf (0-5)
[2018-11-27 07:33] LABS: ACETONE SERUM POSITIVE MODERATE 2+ (NEGATIVE)
[2018-11-27 08:47] LABS: OSMOLALITY,SERUM 299 mosm/kg (278-305)
[2018-11-27] MEDS: KCL 10 MEQ IVPB 10 MEQ/100 ML INFUS.BAG IVPB SCH ×2 (08:48→08:49)
[2018-11-27] MEDS: INSULIN SLIDING SCALE (NOVOLOG) 1 VIAL SQ SCH ×3 (09:47→17:11)
[2018-11-27 09:56] LABS: HEMATOCRIT 44.3 % (35.4-49); HEMOGLOBIN 14.3 GM/dL (11.7-16.9); MCH 26.1 pg (25.7-33.7); MCHC 32.4 g/dl (32.0-35.9); MEAN CELL VOLUME 80.7 fl (80-96); MEAN PLT VOLUME 8.9 fl (7.5-11.1); PLATELET COUNT 209 K/MM3 (134-434); RBC 5.49 M/mm3 (4.00-5.60); RDW 14.8 % (11.9-15.9); WHITE BLOOD COUNT 11.4 K/mm3 (4.0-10.0)
[2018-11-27] MEDS ORDERED: MUPIROCIN 2% TOPICAL OINTMENT FOR DECOLONIZATION NS SCH (10:00)
[2018-11-27] MEDS ORDERED: ENOXAPARIN NA (PORCINE) 40 MG/0.4 ML DISP.SYRIN SQ SCH (10:00)
[2018-11-27 10:22] LABS: CALCIUM 8.6 mg/dL (8.5-10.1); CREATININE 0.9 mg/dL (0.55-1.3); POTASSIUM 3.3 mmol/L (3.5-5.1)
[2018-11-27] MEDS ORDERED: ENOXAPARIN NA (PORCINE) 40 MG/0.4 ML DISP.SYRIN SQ ONE (11:35)
[2018-11-27] MEDS ORDERED: INSULIN (NOVOLOG) ASPART 100 UNITS/ML 10ML VIAL ONE ×2 (12:01→20:02)
[2018-11-27] MEDS ORDERED: INSULIN (LEVEMIR) 100 UNITS/ML UNITS SQ ONE (14:10)
[2018-11-27 16:03] LABS: CALCIUM 8.5 mg/dL (8.5-10.1); MAGNESIUM 2.2 mg/dL (1.8-2.4); PHOSPHOROUS 1.8 mg/dL (2.5-4.9); POTASSIUM 3.6 mmol/L (3.5-5.1)
[2018-11-27 16:42] VITALS: BMI 35.9
[2018-11-27] MEDS: INSULIN (NOVOLOG) ASPART 100 UNITS/ML 10ML VIAL SQ SCH (17:12)
--- NOTE | 2018-11-27 17:20 | PN ---
Progress Note, Physician Chief Complaint: nausea, vomiting, abdominal pain History of Present Illness: patient feeling better, still nausea, but no vomiting and abdominal pain has improved. off insulin gtt, and eating. no other symptoms - Current Medication List Current Medications: Active Medications Enoxaparin Sodium (Lovenox -) 40 mg SQ DAILY [facility] Dextrose/Sodium Chloride (Dextrose 5%-Normal Saline+20 Meq Kcl -) 20 meq in 1, 000 mls @ 150 mls/hr IV ASDIR [facility] Last Admin: 11/27/18 15:21 Dose: 150 mls/hr Insulin Aspart (Novolog Vial Sliding Scale -) 1 vial SQ Q4H [facility]; Protocol Last Admin: 11/27/18 17:11 Dose: 8 units Insulin Aspart (Novolog Vial) 5 units SQ TIDAC [facility] Last Admin: 11/27/18 17:12 Dose: Not Given - Objective Vital Signs: Vital Signs Temperature 98.4 F 11/27/18 14:30 Pulse Rate 86 11/27/18 14:30 Respiratory Rate 17 11/27/18 14:30 Blood Pressure 145/80 11/27/18 14:30 O2 Sat by Pulse Oximetry (%) 99 11/27/18 14:30 Constitutional: Yes: Well Nourished, No Distress, Calm Cardiovascular: Yes: WNL, Regular Rate and Rhythm Respiratory: Yes: WNL, Regular, CTA Bilaterally Gastrointestinal: Yes: WNL, Normal Bowel Sounds, Soft, Abdomen, Obese Musculoskeletal: Yes: WNL Extremities: Yes: WNL Edema: No Labs: CBC, BMP 11/27/18 09:27 11/27/18 14:30 - ....Imaging Chest X-ray: Report Reviewed, Image Reviewed Problem List - Problems (1) DKA (diabetic ketoacidoses) Code(s): E11.10 - TYPE 2 DIABETES MELLITUS WITH KETOACIDOSIS WITHOUT COMA Qualifiers: Diabetes mellitus type: type 2 Diabetes mellitus complication detail: without coma Qualified Code(s): E11.10 - Type 2 diabetes mellitus with ketoacidosis without coma Assessment/Plan 38 year old male with DM2, newly diagnosed in August 2018, started on metformin who presented to ED for nausea, vomiting and abdominal pain. 1) DKA -anion gap closed, bicarb up, tolerating diet, off insulin gtt this AM, ok for medical floor -transition to subq insulin-basal/bolus regimen, given 10 units levemir this AM , another 10 units ordered for tonight, and 5 units fast acting TIDCC with additional sliding scale coverage -aggressive IVF-currently on D5NS with Kcl, transition to NS with Kcl, dc kcl once K > 4 -replete phos, currently 1.8 -monitor coat finisher/mag/phos q4h and replete as needed -no infectious etiology -needs extensive diabetic counseling -endo eval pending -f/u hba1c and lipids -avoid antiemetics, qtc prolonged 2. Obesity -counseled on weight loss, diet, and exercise -dietary eval 3. HTN, untreated -monitor and start aceI once stabilizes
[2018-11-27] MEDS ORDERED: SODIUM CHLORIDE 1,000 ML IV SCH (17:45)
[2018-11-27] MEDS: SODIUM CHLORIDE 0.45%/POT 20 MEQ/1,000 ML INFUS.BAG IV SCH (18:32)
[2018-11-27] MEDS ORDERED: POTASSIUM PHOSPHATE 30 MM in SODIUM CHLORIDE 500 ML IVPB ONE (19:30)
[2018-11-27 20:07] LABS: CALCIUM 8.6 mg/dL (8.5-10.1); CREATININE 0.9 mg/dL (0.55-1.3); MAGNESIUM 2.1 mg/dL (1.8-2.4); PHOSPHOROUS 1.5 mg/dL (2.5-4.9); POTASSIUM 3.3 mmol/L (3.5-5.1)
[2018-11-27] MEDS ORDERED: INSULIN (NOVOLOG) ASPART 100 UNITS/ML 10ML VIAL SQ ONE (20:34)
[2018-11-27] MEDS: SODIUM CHLORIDE 1,000 ML IV SCH (20:58)
[2018-11-27] MEDS: INSULIN (LEVEMIR) 100 UNITS/ML UNITS SQ SCH (21:59)
[2018-11-27] MEDS ORDERED: CHLORHEXIDINE GLUCONATE 4% CLEANSER FOR DECOLONIZATION TP SCH (22:00)
[2018-11-27] MEDS ORDERED: INSULIN SLIDING SCALE (NOVOLOG) 1 VIAL SQ SCH ×2 (22:00→23:15)
[2018-11-27] MEDS ORDERED: POTASSIUM CHLORIDE ORAL LIQUID 20 MEQ/15 ML PO ONE (23:02)
--- NOTE | 2018-11-27 23:19 | CONSULT ---
Consult Consult Specialty:: endocrine Referred by:: pcp Reason for Consultation:: dka/diabetes mellitus uncontrolled - History of Present Illness Chief Complaint: high sugars abdominal pain History of Present Illness: 38-year-old male pmh, NIDDM on metformin presents emergency department for evaluation of abdominal pain, nausea and vomiting since the day of admission. He was found to have,blood sugar above 300,in ed,and in DKA . Patient has had elevated sugars was previously treated with ivfluid and discharged yet continued to have nausea and vomiting and abdominal pain.He admits having lost close to 60lbs in last several months,attributing it to diet and recent diabetic diagnosis. he denies chest pain,fever or cough. - Alcohol/Substance Use Hx Alcohol Use: No - Smoking History Smoking history: Never smoked Have you smoked in the past 12 months: No Home Medications - Allergies Allergies/Adverse Reactions: Allergies Allergy/AdvReac Type Severity Reaction Status Date / Time pollen extracts Allergy Verified 11/27/18 01:42 - Home Medications Home Medications: Ambulatory Orders metFORMIN HCL [Metformin HCl] 850 mg PO BID #14 tablet 11/25/18 Review of Systems - Review of Systems Constitutional: reports: Lethargy, Weakness Eyes: reports: Blurred Vision HENT: reports: No Symptoms Neck: reports: No Symptoms Cardiovascular: reports: No Symptoms Respiratory: reports: Exercise Intolerance Gastrointestinal: reports: Bloating, Nausea Genitourinary: reports: No Symptoms Breasts: reports: No Symptoms Reported Musculoskeletal: reports: No Symptoms Integumentary: reports: No Symptoms Neurological: reports: No Symptoms Endocrine: reports: Unexplained Weight Loss Physical Exam Vital Signs: Vital Signs Temperature 98.1 F 11/27/18 20:46 Pulse Rate 76 11/27/18 20:46 Respiratory Rate 18 11/27/18 20:46 Blood Pressure 134/83 11/27/18 20:46 O2 Sat by Pulse Oximetry (%) 99 11/27/18 14:30 Constitutional: Yes: Calm Eyes: Yes: EOM Intact HENT: Yes: Normocephalic Neck: Yes: Trachea Midline Cardiovascular: Yes: Regular Rate and Rhythm Respiratory: Yes: CTA Bilaterally Gastrointestinal: Yes: Hypoactive Bowel Sounds ...Rectal Exam: Yes: Deferred Renal/: Yes: WNL Extremities: Yes: WNL Edema: Yes Integumentary: Yes: WNL Neurological: Yes: Alert, Oriented Labs: CBC, BMP 11/27/18 09:27 11/27/18 19:00 Problem List - Problems (1) DKA (diabetic ketoacidoses) Code(s): E11.10 - TYPE 2 DIABETES MELLITUS WITH KETOACIDOSIS WITHOUT COMA Qualifiers: Diabetes mellitus type: type 2 Diabetes mellitus complication detail: without coma Qualified Code(s): E11.10 - Type 2 diabetes mellitus with ketoacidosis without coma (2) Diabetes mellitus, new onset Code(s): E11.9 - TYPE 2 DIABETES MELLITUS WITHOUT COMPLICATIONS (3) Nausea Code(s): R11.0 - NAUSEA (4) Uncontrolled diabetes mellitus Code(s): E11.65 - TYPE 2 DIABETES MELLITUS WITH HYPERGLYCEMIA Assessment/Plan Current Active Problems DKA (diabetic ketoacidoses) (Acute) abdominal pain gerd dehydration Abnormal Lab Results 11/27/18 11/27/18 11/27/18 02:02 02:09 02:57 WBC 14.9 H RBC 5.84 H Absolute Neuts (auto) 11.8 H VBG pH 7.14 L* POC VBG pCO2 27.7 L POC VBG pO2 40.8 H VBG HCO3 9.1 L VBG Base Excess -19.3 L Sodium 134 L Potassium Chloride Carbon Dioxide 10 L Anion Gap 19 H BUN 5 L Random Glucose 353 H* Calcium Phosphorus AST 9 L Alkaline Phosphatase 171 H Total Protein 8.3 H Urine Glucose (UA) Urine Ketones 11/27/18 11/27/18 11/27/18 05:30 05:30 05:40 WBC RBC Absolute Neuts (auto) VBG pH POC VBG pCO2 POC VBG pO2 VBG HCO3 VBG Base Excess Sodium Potassium Chloride 112 H Carbon Dioxide 11 L Anion Gap BUN 4 L Random Glucose 204 H Calcium 8.1 L Phosphorus 1.3 L AST Alkaline Phosphatase Total Protein Urine Glucose (UA) 3+ H Urine Ketones 4+ H 11/27/18 11/27/18 11/27/18 09:27 09:27 14:30 WBC 11.4 H RBC Absolute Neuts (auto) VBG pH POC VBG pCO2 POC VBG pO2 VBG HCO3 VBG Base Excess Sodium Potassium 3.3 L Chloride 115 H 113 H Carbon Dioxide 12 L 14 L Anion Gap BUN 5 L 5 L Random Glucose 227 H 338 H* Calcium Phosphorus 1.8 L AST Alkaline Phosphatase Total Protein Urine Glucose (UA) Urine Ketones 05/09/19 19:00 WBC RBC Absolute Neuts (auto) VBG pH POC VBG pCO2 POC VBG pO2 VBG HCO3 VBG Base Excess Sodium Potassium 3.3 L Chloride 113 H Carbon Dioxide 14 L Anion Gap BUN Random Glucose 363 H* Calcium Phosphorus 1.5 L AST Alkaline Phosphatase Total Protein Urine Glucose (UA) Urine Ketones plan: bgm q4hrs coverage gi consult ranitidine 150mg bid ck hba1c,lipase ivfluid replace K,phosphorus
[2018-11-28] MEDS: INSULIN SLIDING SCALE (NOVOLOG) 1 VIAL SQ SCH ×7 (00:23→23:07)
--- NOTE | 2018-11-28 03:29 | HOSP ---
Subjective - Review of Symptoms Events since last encounter: Called overnight to evaluate for chest pain. Pain was mid sternal and non reproducible. He notes the pain woke him from sleep. Upon examination pain has resolved. EKG unchanged from previous EKG, troponin sent to lab. Of note patient also complains of hard abscess under right arm. Consider starting abx in the morning and possible ID consult, may need I &D? abscess vs hidradenitis suppurativa Physical Examination Vital Signs: Vital Signs Temperature 98.1 F 11/27/18 20:46 Pulse Rate 88 11/28/18 03:05 Respiratory Rate 18 11/28/18 03:05 Blood Pressure 144/88 11/28/18 03:05 O2 Sat by Pulse Oximetry (%) 99 11/27/18 21:00 Labs: CBC, BMP 11/27/18 09:27 11/27/18 19:00 Visit type - Emergency Visit Emergency Visit: No - New Patient This patient is new to me today: No - Critical Care Critical Care patient: No
[2018-11-28] MEDS: INSULIN (NOVOLOG) ASPART 100 UNITS/ML 10ML VIAL SQ SCH ×3 (06:22→17:40)
[2018-11-28] MEDS: SODIUM CHLORIDE 1,000 ML IV SCH (06:44)
[2018-11-28 07:36] LABS: BASO % 0.5 % (0-2.0); EOS % 0.7 % (0-4.5); HEMOGLOBIN 15.3 GM/dL (11.7-16.9); LYMPH % 19.3 % (8-40); MCH 26.4 pg (25.7-33.7); MCHC 33.3 g/dl (32.0-35.9); MEAN CELL VOLUME 79.4 fl (80-96); MEAN PLT VOLUME 8.7 fl (7.5-11.1); MONO % 6.5 % (3.8-10.2); PLATELET COUNT 238 K/MM3 (134-434); RBC 5.79 M/mm3 (4.00-5.60); RDW 15.1 % (11.9-15.9); WHITE BLOOD COUNT 12.7 K/mm3 (4.0-10.0)
[2018-11-28 07:48] LABS: CALCIUM 9.2 mg/dL (8.5-10.1); CREATININE 0.8 mg/dL (0.55-1.3); MAGNESIUM 2.5 mg/dL (1.8-2.4); PHOSPHOROUS 2.6 mg/dL (2.5-4.9); POTASSIUM 3.2 mmol/L (3.5-5.1)
[2018-11-28] MEDS ORDERED: POTASSIUM CHLORIDE TABS 20 MEQ TABLET.ER (FP) PO ONE (10:20)
[2018-11-28] MEDS: ENOXAPARIN NA (PORCINE) 40 MG/0.4 ML DISP.SYRIN SQ SCH (10:22)
[2018-11-28] MEDS: RANITIDINE HCL 150 MG TABLET (FP) PO SCH ×2 (10:22→23:08)
[2018-11-28] MEDS: SODIUM CHLORIDE 0.45%/POT 20 MEQ/1,000 ML INFUS.BAG IV SCH ×2 (10:27→18:27)
[2018-11-28] MEDS ORDERED: PIPERACILLIN/TAZOB 3.375 GM 3.375 GM in DEXTROSE 5%-WATER - 50 ML IVPB SCH ×2 (12:15→18:00)
--- NOTE | 2018-11-28 12:17 | PN ---
Physical Exam: SUBJECTIVE: Patient seen and examined. He complains of pain under his right arm. OBJECTIVE: Vital Signs Period Temp Pulse Resp BP Sys/Estrada Pulse Ox Last 24 Hr 97.9 F-98.5 F 76-102 17-18 121-147/71-88 99-99 GENERAL: The patient is awake, alert, and fully oriented, in no acute distress. LUNGS: Breath sounds equal, clear to auscultation bilaterally, no wheezes, no crackles, no accessory muscle use. HEART: Regular rate and rhythm, S1, S2 without murmur, rub or gallop. ABDOMEN: Obese, soft, nontender, nondistended, normoactive bowel sounds, no guarding, no rebound, no hepatosplenomegaly, no masses. EXTREMITIES: 2+ pulses, warm, well-perfused, no edema. Tender, erythematous nodule with surrounding erythema anterior right axilla. Laboratory Results - last 24 hr 11/27/18 11/27/18 11/27/18 14:30 17:07 19:00 WBC RBC Hgb Hct MCV MCH MCHC RDW Plt Count MPV Absolute Neuts (auto) Neutrophils % Lymphocytes % Monocytes % Eosinophils % Basophils % Nucleated RBC % Sodium 141 140 Potassium 3.6 3.3 L Chloride 113 H 113 H Carbon Dioxide 14 L 14 L Anion Gap 14 14 BUN 5 L 7 Creatinine 1.0 0.9 Est GFR (CKD-EPI)AfAm 110.94 126.02 Est GFR (CKD-EPI)NonAf 95.72 108.73 POC Glucometer 330 Random Glucose 338 H* 363 H* Hemoglobin A1c % Calcium 8.5 8.6 Phosphorus 1.8 L 1.5 L Magnesium 2.2 2.1 Troponin I Triglycerides Cholesterol Total LDL Cholesterol HDL Cholesterol Lipase 11/27/18 11/28/18 11/28/18 22:04 00:20 03:20 WBC RBC Hgb Hct MCV MCH MCHC RDW Plt Count MPV Absolute Neuts (auto) Neutrophils % Lymphocytes % Monocytes % Eosinophils % Basophils % Nucleated RBC % Sodium Potassium Chloride Carbon Dioxide Anion Gap BUN Creatinine Est GFR (CKD-EPI)AfAm Est GFR (CKD-EPI)NonAf POC Glucometer 246 223 Random Glucose Hemoglobin A1c % Calcium Phosphorus Magnesium Troponin I < 0.02 Triglycerides Cholesterol Total LDL Cholesterol HDL Cholesterol Lipase 11/28/18 11/28/18 11/28/18 03:27 06:00 06:00 WBC RBC Hgb Hct MCV MCH MCHC RDW Plt Count MPV Absolute Neuts (auto) Neutrophils % Lymphocytes % Monocytes % Eosinophils % Basophils % Nucleated RBC % Sodium 138 Potassium 3.2 L Chloride 109 H Carbon Dioxide 15 L Anion Gap 15 BUN 5 L Creatinine 0.8 Est GFR (CKD-EPI)AfAm 132.27 Est GFR (CKD-EPI)NonAf 114.12 POC Glucometer 189 Random Glucose 211 H Hemoglobin A1c % 11.8 H Calcium 9.2 Phosphorus 2.6 Magnesium 2.5 H Troponin I Triglycerides 116 Cholesterol 201 H Total LDL Cholesterol 132 H HDL Cholesterol 46 Lipase 11/28/18 11/28/18 11/28/18 06:00 06:00 06:20 WBC 12.7 H RBC 5.79 H Hgb 15.3 Hct 46.0 MCV 79.4 L MCH 26.4 MCHC 33.3 RDW 15.1 Plt Count 238 MPV 8.7 Absolute Neuts (auto) 9.3 H Neutrophils % 73.0 Lymphocytes % 19.3 D Monocytes % 6.5 Eosinophils % 0.7 D Basophils % 0.5 Nucleated RBC % 0 Sodium Potassium Chloride Carbon Dioxide Anion Gap BUN Creatinine Est GFR (CKD-EPI)AfAm Est GFR (CKD-EPI)NonAf POC Glucometer 241 Random Glucose Hemoglobin A1c % Calcium Phosphorus Magnesium Troponin I Triglycerides Cholesterol Total LDL Cholesterol HDL Cholesterol Lipase 177 11/28/18 11:42 WBC RBC Hgb Hct MCV MCH MCHC RDW Plt Count MPV Absolute Neuts (auto) Neutrophils % Lymphocytes % Monocytes % Eosinophils % Basophils % Nucleated RBC % Sodium Potassium Chloride Carbon Dioxide Anion Gap BUN Creatinine Est GFR (CKD-EPI)AfAm Est GFR (CKD-EPI)NonAf POC Glucometer 344 Random Glucose Hemoglobin A1c % Calcium Phosphorus Magnesium Troponin I Triglycerides Cholesterol Total LDL Cholesterol HDL Cholesterol Lipase Active Medications Generic Name Dose Route Start Last Admin Trade Name Freq PRN Reason Stop Dose Admin Enoxaparin Sodium 40 mg 11/28/18 10:00 11/28/18 10:22 Lovenox - SQ 40 mg DAILY BRITTNY Administration Potassium Chloride/Sodium Chloride 20 meq in 1,000 mls @ 125 mls/hr 11/27/18 17:45 11/28/18 10:27 1/2ns+20meq Kcl IV 125 mls/hr ASDIR BRITTNY Administration Piperacillin Sod/Tazobactam 50 mls @ 100 mls/hr 11/28/18 18:00 Sod 3.375 gm/ Dextrose IVPB Q8H-IV BRITTNY Protocol Piperacillin Sod/Tazobactam 50 mls @ 100 mls/hr 11/28/18 12:15 Sod 3.375 gm/ Dextrose IVPB 11/29/18 12:14 Q8H-IV BRITTNY Protocol Insulin Aspart 5 units 11/27/18 16:30 11/28/18 11:44 Novolog Vial SQ 5 units TIDAC BRITTNY Administration Insulin Aspart 1 vial 11/27/18 23:15 11/28/18 11:44 Novolog Vial Sliding Scale - SQ 8 units Q4H BRITTNY Administration Protocol Insulin Detemir 10 units 11/27/18 22:00 11/27/18 21:59 Levemir Vial SQ 10 units HS BRITTNY Administration Ranitidine HCl 150 mg 11/28/18 10:00 11/28/18 10:22 Zantac - PO 150 mg BID BRITTNY Administration ASSESSMENT/PLAN: This is a 38 year old man with a history of recently diagnosed DM who presented to the ED with nausea and vomiting. 1. DKA - Resolved - Insulin drip discontinued 2. Type 2 DM, uncontrolled - HbA1c 11.8 - Levemir, pre-meal Novolog with sliding scale started 3. Sepsis (leukocytosis, tachycardia) secondary to right axilla abscess, possible hidradenitis - Start Zosyn - ID, surgery consults 4. Hypokalemia - Continue to replete potassium 5. Hypophosphatemia - Improved 6. Obesity with BMI 35.9 Visit type - Emergency Visit Emergency Visit: Yes ED Registration Date: 11/27/18 Care time: The patient presented to the Emergency Department on the above date and was hospitalized for further evaluation of their emergent condition. - New Patient This patient is new to me today: Yes Date on this admission: 11/28/18 - Critical Care Critical Care patient: No - Discharge Referral Referred to [facility] Med P.C.: No
[2018-11-28] MEDS ORDERED: DEXTROSE 5%-WATER - 50 ML IVPB ONE ×2 (12:48→17:23)
[2018-11-28] MEDS ORDERED: PIPERACILLIN/TAZOBACTAM 3.375 GM VIAL IVPB ONE ×2 (12:48→17:23)
--- NOTE | 2018-11-28 13:33 | CON.ID ---
Consult Consult Specialty:: infectious diseases Referred by:: Reason for Consultation:: rt axillar abscess - History of Present Illness Chief Complaint: rt axillary pain History of Present Illness: 38-year-old male recently diagnosed with NIDDM on metformin presents emergency department for evaluation of abdominal pain, nausea and vomiting throughout the day today. He denies fevers and reports blood sugar at home 300. patient was seen in the er days back was given iv fluids and discharged patient it seems now had very high blood sugars and was admitted for further mgmt patient then was c/o of pain in his rt axilla and on exam was found to have rt axillary abscess also c/o tenderness of the axilla - History Source History Provided By: Patient Limitations to Obtaining History: No Limitations - Alcohol/Substance Use Hx Alcohol Use: No - Smoking History Smoking history: Never smoked Have you smoked in the past 12 months: No Home Medications - Allergies Allergies/Adverse Reactions: Allergies Allergy/AdvReac Type Severity Reaction Status Date / Time pollen extracts Allergy Verified 11/27/18 01:42 - Home Medications Home Medications: Ambulatory Orders metFORMIN HCL [Metformin HCl] 850 mg PO BID #14 tablet 11/25/18 Review of Systems - Review of Systems Constitutional: reports: Chills, Fever Neck: reports: No Symptoms Cardiovascular: reports: No Symptoms Respiratory: reports: No Symptoms Gastrointestinal: reports: No Symptoms Genitourinary: reports: No Symptoms Musculoskeletal: reports: Other (axiallry pain) Integumentary: reports: Change in Color (rt axilla), Erythema Neurological: reports: No Symptoms Endocrine: reports: No Symptoms Hematology/Lymphatic: reports: No Symptoms Psychiatric: reports: No Symptoms Physical Exam Vital Signs: Vital Signs Temperature 97.9 F 11/28/18 10:21 Pulse Rate 102 H 11/28/18 10:21 Respiratory Rate 18 11/28/18 10:21 Blood Pressure 127/80 11/28/18 10:21 O2 Sat by Pulse Oximetry (%) 99 11/28/18 09:00 Constitutional: Yes: Well Nourished, Calm, Mild Distress, Obese Eyes: Yes: Conjunctiva Clear, EOM Intact HENT: Yes: Atraumatic, Normocephalic Neck: Yes: Supple, Trachea Midline Cardiovascular: Yes: Regular Rate and Rhythm Respiratory: Yes: Regular, CTA Bilaterally Gastrointestinal: Yes: Normal Bowel Sounds, Soft Musculoskeletal: Yes: Other (rt axillary swelling) Extremities: Yes: Other (rt axillary swelling) Neurological: Yes: Alert, Oriented Psychiatric: Yes: Alert, Oriented Labs: CBC, BMP 11/28/18 06:00 11/28/18 06:00 Imaging - Results Chest X-ray: Report Reviewed, Image Reviewed Ultrasound: Report Reviewed, Image Reviewed Assessment/Plan 38 year old man with a history of recently diagnosed DM who presented to the ED with nausea and vomiting. 1. DKA 2. Type 2 DM, uncontrolled 3. Sepsis 4. Hypokalemia 5. Hypophosphatemia 6. Obesity with BMI 35.9 leukocytosis i think his sugar and sepsis coming from the axillary abscess patient given zosyn i think this could be hidradenitis as patient had similar in the left axilla before continue zosyn will add vanco await for surgery to see the patient
[2018-11-28] MEDS ORDERED: VANCOMYCIN HCL 1,500 MG in DEXTROSE 5%-WATER - 500 ML IVPB ONE ×2 (13:34→18:15)
[2018-11-28] MEDS ORDERED: LIDOCAINE HCL 1%, 10 MG/ML (50 mL VIAL) SQ ONE (14:57)
--- NOTE | 2018-11-28 15:05 | EKG ---
Test Reason : Blood Pressure : / mmHG Vent. Rate : 097 BPM Atrial Rate : 097 BPM P-R Int : 144 ms QRS Dur : 150 ms QT Int : 438 ms P-R-T Axes : 019 -20 009 degrees QTc Int : 556 ms NORMAL SINUS RHYTHM RIGHT BUNDLE BRANCH BLOCK NONSPECIFIC ST ABNORMALITY Confirmed by ELMIRA GREER MD ([id number]) on 11/28/2018 3:05:06 PM Referred By: Confirmed By:ELMIRA GREER MD
[2018-11-28] MEDS ORDERED: LIDOCAINE HCL 1%, 10 MG/ML (20ML VIAL) NR ONE (16:15)
--- NOTE | 2018-11-28 17:00 | PROC ---
<Luz Ahn - Last Filed: 11/28/18 16:55> Incision and Drainage Indication/Location: patient with right axilla abscess with arabella puss at surface. Risks and Benefits Explained: Yes Consent on Chart: Yes Betadine cleansed: Yes (chloroprep) Anesthesia: 1% Lidocaine Blade Size: 15 Irrigated with Normal Saline: Yes Plain packing: Yes (wet to dry with saline) Sterile Dressing Applied: Yes - Remarks Remarks: warm compress to axilla as tolerated <Harjinder Reese - Last Filed: 11/29/18 10:52> Procedure Note Procedure: Attending Surgeon CTSP for e/m ABSSSI of the right axilla; pt seen and examined; chart reviewed; for I and D righ axillary skin ABSSSI; r/b/t/a's d/w the patient and consent obtained. Harjinder Reese MD FACS
[2018-11-28] MEDS: PIPERACILLIN/TAZOB 3.375 GM 3.375 GM in DEXTROSE 5%-WATER - 50 ML IVPB SCH (17:35)
[2018-11-28 18:33] LABS: CALCIUM 9.1 mg/dL (8.5-10.1); CREATININE 0.7 mg/dL (0.55-1.3); POTASSIUM 3.1 mmol/L (3.5-5.1)
[2018-11-28] MEDS ORDERED: Insulin (LOG) Aspart 100 UNITS/ML VIAL SQ ONE (20:34)
[2018-11-28] MEDS: INSULIN (LEVEMIR) 100 UNITS/ML UNITS SQ SCH (23:04)
--- NOTE | 2018-11-29 00:45 | PN ---
Progress Note (short form) - Note Progress Note: sp debridement boil, Current Active Problems sp DKA (diabetic ketoacidoses) (Acute) absecess Abnormal Lab Results 11/28/18 11/28/18 11/28/18 06:00 06:00 06:00 WBC 12.7 H RBC 5.79 H MCV 79.4 L Absolute Neuts (auto) 9.3 H Potassium 3.2 L Chloride 109 H Carbon Dioxide 15 L BUN 5 L Random Glucose 211 H Hemoglobin A1c % 11.8 H Magnesium 2.5 H Cholesterol 201 H Total LDL Cholesterol 132 H 11/28/18 17:15 WBC RBC MCV Absolute Neuts (auto) Potassium 3.1 L Chloride Carbon Dioxide 17 L BUN Random Glucose 275 H Hemoglobin A1c % Magnesium Cholesterol Total LDL Cholesterol Laboratory Tests 11/28/18 06:00 Hemoglobin A1c % 11.8 H plan: novolog insulin 70/30 bid 20 units continue levemir for resistance still persists add atorvastatin 20mg daily Problem List - Problems (1) DKA (diabetic ketoacidoses) Code(s): E11.10 - TYPE 2 DIABETES MELLITUS WITH KETOACIDOSIS WITHOUT COMA Qualifiers: Diabetes mellitus type: type 2 Diabetes mellitus complication detail: without coma Qualified Code(s): E11.10 - Type 2 diabetes mellitus with ketoacidosis without coma (2) Diabetes mellitus, new onset Code(s): E11.9 - TYPE 2 DIABETES MELLITUS WITHOUT COMPLICATIONS (3) Nausea Code(s): R11.0 - NAUSEA (4) Uncontrolled diabetes mellitus Code(s): E11.65 - TYPE 2 DIABETES MELLITUS WITH HYPERGLYCEMIA
[2018-11-29] MEDS ORDERED: DEXTROSE 5%-WATER - 50 ML IVPB ONE ×3 (02:06→17:09)
[2018-11-29] MEDS ORDERED: PIPERACILLIN/TAZOBACTAM 3.375 GM VIAL IVPB ONE ×3 (02:06→17:09)
[2018-11-29] MEDS: PIPERACILLIN/TAZOB 3.375 GM 3.375 GM in DEXTROSE 5%-WATER - 50 ML IVPB SCH ×3 (02:10→17:43)
[2018-11-29] MEDS: SODIUM CHLORIDE 0.45%/POT 20 MEQ/1,000 ML INFUS.BAG IV SCH ×2 (02:10→17:52)
[2018-11-29] MEDS ORDERED: INSULIN (LEVEMIR) 100 UNITS/ML UNITS SQ ONE ×2 (06:09→06:42)
[2018-11-29] MEDS: INSULIN (NOVOLOG MIX 70/30) 100 UNITS/ML MDV SQ SCH ×2 (06:37→16:25)
[2018-11-29] MEDS: INSULIN SLIDING SCALE (NOVOLOG) 1 VIAL SQ SCH ×4 (06:38→21:41)
[2018-11-29] MEDS ORDERED: INSULIN (NOVOLOG) ASPART 100 UNITS/ML 10ML VIAL ONE ×2 (06:42→11:40)
[2018-11-29] MEDS ORDERED: INSULIN (NOVOLOG MIX 70/30) 100 UNITS/ML MDV SQ ONE (06:43)
[2018-11-29 07:21] LABS: BASO % 0.4 % (0-2.0); EOS % 0.7 % (0-4.5); HEMATOCRIT 40.3 % (35.4-49); HEMOGLOBIN 13.7 GM/dL (11.7-16.9); LYMPH % 15.5 % (8-40); MCH 26.2 pg (25.7-33.7); MEAN CELL VOLUME 77.2 fl (80-96); MEAN PLT VOLUME 8.4 fl (7.5-11.1); MONO % 8.1 % (3.8-10.2); NEUT % 75.3 % (42.8-82.8); PLATELET COUNT 186 K/MM3 (134-434); RBC 5.21 M/mm3 (4.00-5.60); RDW 14.7 % (11.9-15.9); WHITE BLOOD COUNT 9.5 K/mm3 (4.0-10.0)
--- NOTE | 2018-11-29 07:38 | PN ---
Progress Note, Physician Chief Complaint: Remained afebrile c/o pain - Current Medication List Current Medications: Active Medications Atorvastatin Calcium (Lipitor -) 20 mg PO HS [facility] Enoxaparin Sodium (Lovenox -) 40 mg SQ DAILY [facility] Last Admin: 11/28/18 10:22 Dose: 40 mg Potassium Chloride/Sodium Chloride (1/2ns+20meq Kcl) 20 meq in 1,000 mls @ 125 mls/hr IV ASDIR [facility] Last Admin: 11/29/18 02:10 Dose: 125 mls/hr Piperacillin Sod/Tazobactam (Sod 3.375 gm/ Dextrose) 50 mls @ 100 mls/hr IVPB Q8H-IV BRITTNY; Protocol Last Admin: 11/29/18 02:10 Dose: 100 mls/hr Insulin Aspart (Novolog Mix 70/30 Vial) 20 units SQ BIDAC [facility] Last Admin: 11/29/18 06:37 Dose: 20 units Insulin Aspart (Novolog Vial Sliding Scale -) 1 vial SQ ACHS [facility]; Protocol Last Admin: 11/29/18 06:38 Dose: 6 units Insulin Detemir (Levemir Vial) 10 units SQ HS [facility] Last Admin: 11/28/18 23:04 Dose: 10 units Ranitidine HCl (Zantac -) 150 mg PO BID [facility] Last Admin: 11/28/18 23:08 Dose: 150 mg - Objective Vital Signs: Vital Signs Temperature 98.3 F 11/29/18 06:00 Pulse Rate 88 11/29/18 06:00 Respiratory Rate 20 11/29/18 06:00 Blood Pressure 121/78 11/29/18 06:00 O2 Sat by Pulse Oximetry (%) 98 11/28/18 21:00 Young man c/o constipation HEENT: Mm moist, no anemia, PERRLA EOMI NECK: No JVD No Bruit CHEST: CTA B/L CVS: S1S2 R no m/g/r ABD: No distention, non tender Bs + EXTERMITIES: Rt axillay abscess s/p I and D , no edema feet, no calf tenderness , Pulses + CHERRY DIPPER: AOX3 non focal Labs: CBC, BMP 11/29/18 06:35 11/29/18 06:35 Problem List - Problems (1) Axillary abscess Assessment/Plan: Rt s/p I and D F/U Culture on IV Unasyn Code(s): L02.419 - CUTANEOUS ABSCESS OF LIMB, UNSPECIFIED (2) DKA (diabetic ketoacidoses) Assessment/Plan: Poorly controlled, admitted with axillary abscess on correction Lispro, increase Levimir 15, NPH mix pro 70/30 unit 20 BID Code(s): E11.10 - TYPE 2 DIABETES MELLITUS WITH KETOACIDOSIS WITHOUT COMA Qualifiers: Diabetes mellitus type: type 2 Diabetes mellitus complication detail: without coma Qualified Code(s): E11.10 - Type 2 diabetes mellitus with ketoacidosis without coma (3) Hypokalemia Assessment/Plan: Repleted Kcl 40 PO and 20 mEq IVSS F /U Mag level and BMP in am Code(s): E87.6 - HYPOKALEMIA
[2018-11-29 07:46] LABS: CALCIUM 8.4 mg/dL (8.5-10.1); CREATININE 0.6 mg/dL (0.55-1.3)
[2018-11-29 08:14] LABS: POTASSIUM 2.8 mmol/L (3.5-5.1)
[2018-11-29] MEDS ORDERED: POTASSIUM CHLORIDE TABS 20 MEQ TABLET.ER (FP) PO ONE (08:22)
[2018-11-29] MEDS: RANITIDINE HCL 150 MG TABLET (FP) PO SCH ×2 (09:23→21:40)
[2018-11-29] MEDS: ENOXAPARIN NA (PORCINE) 40 MG/0.4 ML DISP.SYRIN SQ SCH (09:24)
[2018-11-29] MEDS: POTASSIUM CHLORIDE 10 MEQ PREMIX IVPB (POTASSIUM RIDER) IVPB SCH (09:55)
--- NOTE | 2018-11-29 10:55 | PN ---
Progress Note (short form) - Note Progress Note: Attending Surgeon Seen in f/u; I and D site packing removed; no residual drainage; may shower; now appears to have more proximal st mass c/w evolving deep abscess; will re- evaluate 11/30/18 and if I and D needed needs to be done in the OR under [facility] ; a/a/u by the patient. Harjinder Reese MD FACS
--- NOTE | 2018-11-29 11:43 | EKG ---
Test Reason : Blood Pressure : / mmHG Vent. Rate : 091 BPM Atrial Rate : 091 BPM P-R Int : 150 ms QRS Dur : 144 ms QT Int : 428 ms P-R-T Axes : -11 -26 -16 degrees QTc Int : 526 ms NORMAL SINUS RHYTHM RIGHT BUNDLE BRANCH BLOCK ABNORMAL ECG WHEN COMPARED WITH ECG OF 27-NOV-2018 04:14, NONSPECIFIC T WAVE ABNORMALITY HAS REPLACED INVERTED T WAVES IN ANTERIOR LEADS Confirmed by HONG CABRERA, YVETTE ([id number]) on 11/29/2018 11:43:04 AM Referred By: Confirmed By:YVETTE PITTS MD
[2018-11-29] MEDS ORDERED: DOCUSATE SODIUM 100 MG CAPSULE (FP) PO PRN (13:35)
--- NOTE | 2018-11-29 17:17 | PN ---
Progress Note, Physician History of Present Illness: Events reviewed. Pt is alert, afebrile. Still with Rt axillary pain, s/p I+D but slightly less. Afebrile, without distress. No other specific complaints. - Current Medication List Current Medications: Active Medications Atorvastatin Calcium (Lipitor -) 20 mg PO HS [facility] Docusate Sodium (Colace -) 100 mg PO BID PRN PRN Reason: CONSTIPATION Last Admin: 11/29/18 14:25 Dose: 100 mg Enoxaparin Sodium (Lovenox -) 40 mg SQ DAILY [facility] Last Admin: 11/29/18 09:24 Dose: 40 mg Potassium Chloride/Sodium Chloride (1/2ns+20meq Kcl) 20 meq in 1,000 mls @ 125 mls/hr IV ASDIR [facility] Last Admin: 11/29/18 02:10 Dose: 125 mls/hr Piperacillin Sod/Tazobactam (Sod 3.375 gm/ Dextrose) 50 mls @ 100 mls/hr IVPB Q8H-IV [facility]; Protocol Last Admin: 11/29/18 09:23 Dose: 100 mls/hr Insulin Aspart (Novolog Mix 70/30 Vial) 20 units SQ BIDAC [facility] Last Admin: 11/29/18 16:25 Dose: 20 units Insulin Aspart (Novolog Vial Sliding Scale -) 1 vial SQ ACHS [facility]; Protocol Last Admin: 11/29/18 16:25 Dose: 8 units Insulin Detemir (Levemir Vial) 15 units SQ HS [facility] Ranitidine HCl (Zantac -) 150 mg PO BID [facility] Last Admin: 11/29/18 09:23 Dose: 150 mg - Objective Vital Signs: Vital Signs Temperature 97.9 F 11/29/18 13:38 Pulse Rate 89 11/29/18 13:38 Respiratory Rate 17 11/29/18 13:38 Blood Pressure 132/75 11/29/18 13:38 O2 Sat by Pulse Oximetry (%) 99 11/29/18 09:00 Constitutional: Yes: No Distress, Calm Cardiovascular: Yes: Regular Rate and Rhythm Respiratory: Yes: Regular Gastrointestinal: Yes: Normal Bowel Sounds, Soft Genitourinary: Yes: WNL Wound/Incision: Yes: Other (Rt axillary wound with dressing, appears serosanguinous , +tender around palpation site) Labs: CBC, BMP 11/29/18 06:35 11/29/18 06:35 Problem List - Problems (1) Axillary abscess Code(s): L02.419 - CUTANEOUS ABSCESS OF LIMB, UNSPECIFIED (2) DKA (diabetic ketoacidoses) Code(s): E11.10 - TYPE 2 DIABETES MELLITUS WITH KETOACIDOSIS WITHOUT COMA Qualifiers: Diabetes mellitus type: type 2 Diabetes mellitus complication detail: without coma Qualified Code(s): E11.10 - Type 2 diabetes mellitus with ketoacidosis without coma (3) Hypokalemia Code(s): E87.6 - HYPOKALEMIA (4) Diabetes mellitus, new onset Code(s): E11.9 - TYPE 2 DIABETES MELLITUS WITHOUT COMPLICATIONS Assessment/Plan - s/p I+D - f/u cultures - continue IV antibiotics for now - Surgery to re-evaluate for possible other abscess requiring drainage - wbc normal, afebrile - monitor K+
[2018-11-29] MEDS: ATORVASTATIN CA 20 MG TABLET (FP) PO SCH (21:40)
[2018-11-29] MEDS: INSULIN (LEVEMIR) 100 UNITS/ML UNITS SQ SCH (21:41)
[2018-11-30] MEDS: SODIUM CHLORIDE 0.45%/POT 20 MEQ/1,000 ML INFUS.BAG IV SCH ×2 (00:27→17:41)
[2018-11-30] MEDS ORDERED: PIPERACILLIN/TAZOBACTAM 3.375 GM VIAL IVPB ONE ×3 (01:16→17:09)
[2018-11-30] MEDS ORDERED: DEXTROSE 5%-WATER - 50 ML IVPB ONE ×3 (01:17→17:09)
[2018-11-30] MEDS: PIPERACILLIN/TAZOB 3.375 GM 3.375 GM in DEXTROSE 5%-WATER - 50 ML IVPB SCH ×3 (02:24→17:15)
[2018-11-30] MEDS: INSULIN (NOVOLOG MIX 70/30) 100 UNITS/ML MDV SQ SCH ×2 (07:08→17:16)
[2018-11-30] MEDS: INSULIN SLIDING SCALE (NOVOLOG) 1 VIAL SQ SCH ×4 (07:09→21:18)
[2018-11-30] MEDS ORDERED: INSULIN (NOVOLOG) ASPART 100 UNITS/ML 10ML VIAL ONE ×3 (07:21→21:08)
[2018-11-30 08:11] LABS: BASO % 0.5 % (0-2.0); EOS % 1.3 % (0-4.5); HEMATOCRIT 41.2 % (35.4-49); HEMOGLOBIN 13.9 GM/dL (11.7-16.9); LYMPH % 23.4 % (8-40); MCH 26.1 pg (25.7-33.7); MCHC 33.8 g/dl (32.0-35.9); MEAN CELL VOLUME 77.3 fl (80-96); MEAN PLT VOLUME 8.8 fl (7.5-11.1); NEUT % 67.8 % (42.8-82.8); PLATELET COUNT 199 K/MM3 (134-434); RBC 5.33 M/mm3 (4.00-5.60); RDW 14.6 % (11.9-15.9); WHITE BLOOD COUNT 9.4 K/mm3 (4.0-10.0)
[2018-11-30 08:36] LABS: CALCIUM 8.8 mg/dL (8.5-10.1); CREATININE 0.5 mg/dL (0.55-1.3); POTASSIUM 3.2 mmol/L (3.5-5.1)
[2018-11-30] MEDS: RANITIDINE HCL 150 MG TABLET (FP) PO SCH ×2 (09:15→21:17)
[2018-11-30] MEDS: ENOXAPARIN NA (PORCINE) 40 MG/0.4 ML DISP.SYRIN SQ SCH (09:15)
--- NOTE | 2018-11-30 13:44 | PN ---
Progress Note, Physician History of Present Illness: Pt reports less tenderness in Rt axilla, remains afebrile, without new complaints. - Current Medication List Current Medications: Active Medications Atorvastatin Calcium (Lipitor -) 20 mg PO HS [facility] BEDS AT [facility] Last Admin: 11/29/18 21:40 Dose: 20 mg Docusate Sodium (Colace -) 100 mg PO BID PRN PRN Reason: CONSTIPATION Last Admin: 11/29/18 14:25 Dose: 100 mg Enoxaparin Sodium (Lovenox -) 40 mg SQ DAILY [facility] 234 BEDS AT THE [facility] Last Admin: 11/30/18 09:15 Dose: 40 mg Potassium Chloride/Sodium Chloride (1/2ns+20meq Kcl) 20 meq in 1,000 mls @ 125 mls/hr IV ASDIR COUNTS INCLUDE 234 BEDS AT THE [facility] Last Admin: 11/30/18 00:27 Dose: 125 mls/hr Piperacillin Sod/Tazobactam (Sod 3.375 gm/ Dextrose) 50 mls @ 100 mls/hr IVPB Q8H-IV [facility]; Protocol Last Admin: 11/30/18 09:14 Dose: 100 mls/hr Insulin Aspart (Novolog Mix 70/30 Vial) 20 units SQ BIDAC [facility]S [facility]CLUDE 234 BEDS AT THE [facility] Last Admin: 11/30/18 07:08 Dose: 20 units Insulin Aspart (Novolog Vial Sliding Scale -) 1 vial SQ ACHS [facility] 234 BEDS AT THE [facility]; Protocol Last Admin: 11/30/18 11:13 Dose: 6 units Insulin Detemir (Levemir Vial) 15 units SQ HS [facility] 234 BEDS AT [facility] Last Admin: 11/29/18 21:41 Dose: 15 units Ranitidine HCl (Zantac -) 150 mg PO BID [facility] 234 BEDS AT [facility] Last Admin: 11/30/18 09:15 Dose: 150 mg - Objective Vital Signs: Vital Signs Temperature 97.5 F L 11/30/18 06:00 Pulse Rate 76 11/30/18 06:00 Respiratory Rate 20 11/30/18 09:00 Blood Pressure 138/81 11/30/18 06:00 O2 Sat by Pulse Oximetry (%) 100 11/30/18 09:00 Constitutional: Yes: No Distress, Calm Cardiovascular: Yes: Regular Rate and Rhythm Respiratory: Yes: Regular Gastrointestinal: Yes: Normal Bowel Sounds, Soft Wound/Incision: Yes: Other (dressing intact, decreased induration/erythema/ tenderness in Rt axilla wound site) Neurological: Yes: Alert Labs: CBC, BMP 11/30/18 07:15 11/30/18 07:15 Problem List - Problems (1) Axillary abscess Code(s): L02.419 - CUTANEOUS ABSCESS OF LIMB, UNSPECIFIED (2) DKA (diabetic ketoacidoses) Code(s): E11.10 - TYPE 2 DIABETES MELLITUS WITH KETOACIDOSIS WITHOUT COMA Qualifiers: Diabetes mellitus type: type 2 Diabetes mellitus complication detail: without coma Qualified Code(s): E11.10 - Type 2 diabetes mellitus with ketoacidosis without coma (3) Hypokalemia Code(s): E87.6 - HYPOKALEMIA (4) Diabetes mellitus, new onset Code(s): E11.9 - TYPE 2 DIABETES MELLITUS WITHOUT COMPLICATIONS Assessment/Plan -- continue antibiotics -- ? wound cultures sent from I+D -- re-evaluation for possible 2nd developing abscess planned - wbc normal, afebrile, clinically improving - continue wound care - glycemic control
[2018-11-30] MEDS ORDERED: POTASSIUM CHLORIDE TABS 20 MEQ TABLET.ER (FP) PO ONE (14:18)
--- NOTE | 2018-11-30 14:22 | PN ---
Physical Exam: SUBJECTIVE: Patient seen and examined. He has no complaints. OBJECTIVE: Vital Signs Period Temp Pulse Resp BP Sys/Estrada Pulse Ox Last 24 Hr 97.5 F-98.4 F 76-88 18-20 126-138/68-81 100-100 GENERAL: The patient is awake, alert, and fully oriented, in no acute distress. LUNGS: Breath sounds equal, clear to auscultation bilaterally, no wheezes, no crackles, no accessory muscle use. HEART: Regular rate and rhythm, S1, S2 without murmur, rub or gallop. ABDOMEN: Obese, soft, nontender, nondistended, normoactive bowel sounds, no guarding, no rebound, no hepatosplenomegaly, no masses. EXTREMITIES: 2+ pulses, warm, well-perfused, no edema. Laboratory Results - last 24 hr 11/27/18 11/29/18 11/29/18 05:30 16:08 20:14 WBC RBC Hgb Hct MCV MCH MCHC RDW Plt Count MPV Absolute Neuts (auto) Neutrophils % Lymphocytes % Monocytes % Eosinophils % Basophils % Nucleated RBC % Sodium Potassium Chloride Carbon Dioxide Anion Gap BUN Creatinine Est GFR (CKD-EPI)AfAm Est GFR (CKD-EPI)NonAf POC Glucometer 328 322 Random Glucose Calcium B-Hydroxybutyrate 66.00 H 11/30/18 11/30/18 11/30/18 02:28 06:44 07:15 WBC 9.4 RBC 5.33 Hgb 13.9 Hct 41.2 MCV 77.3 L MCH 26.1 MCHC 33.8 RDW 14.6 Plt Count 199 MPV 8.8 Absolute Neuts (auto) 6.4 Neutrophils % 67.8 Lymphocytes % 23.4 D Monocytes % 7.0 Eosinophils % 1.3 D Basophils % 0.5 Nucleated RBC % 0 Sodium Potassium Chloride Carbon Dioxide Anion Gap BUN Creatinine Est GFR (CKD-EPI)AfAm Est GFR (CKD-EPI)NonAf POC Glucometer 240 222 Random Glucose Calcium B-Hydroxybutyrate 11/30/18 11/30/18 07:15 11:56 WBC RBC Hgb Hct MCV MCH MCHC RDW Plt Count MPV Absolute Neuts (auto) Neutrophils % Lymphocytes % Monocytes % Eosinophils % Basophils % Nucleated RBC % Sodium 137 Potassium 3.2 L Chloride 102 Carbon Dioxide 25 Anion Gap 10 BUN 6 L Creatinine 0.5 L Est GFR (CKD-EPI)AfAm 160.45 Est GFR (CKD-EPI)NonAf 138.44 POC Glucometer 275 Random Glucose 214 H Calcium 8.8 B-Hydroxybutyrate Active Medications Generic Name Dose Route Start Last Admin Trade Name Freq PRN Reason Stop Dose Admin Atorvastatin Calcium 20 mg 11/29/18 22:00 11/29/18 21:40 Lipitor - PO 20 mg HS BRITTNY Administration Docusate Sodium 100 mg 11/29/18 13:35 11/29/18 14:25 Colace - PO 100 mg BID PRN Administration CONSTIPATION Enoxaparin Sodium 40 mg 11/28/18 10:00 11/30/18 09:15 Lovenox - SQ 40 mg DAILY BRITTNY Administration Potassium Chloride/Sodium Chloride 20 meq in 1,000 mls @ 125 mls/hr 11/27/18 17:45 11/30/18 00:27 1/2ns+20meq Kcl IV 125 mls/hr ASDIR BRITTNY Administration Piperacillin Sod/Tazobactam 50 mls @ 100 mls/hr 11/28/18 18:00 11/30/18 09:14 Sod 3.375 gm/ Dextrose IVPB 100 mls/hr Q8H-IV BRITTNY Administration Protocol Insulin Aspart 20 units 11/29/18 07:00 11/30/18 07:08 Novolog Mix 70/30 Vial SQ 20 units BIDAC BRITTNY Administration Insulin Aspart 1 vial 11/29/18 07:00 11/30/18 11:13 Novolog Vial Sliding Scale - SQ 6 units ACHS BRITTNY Administration Protocol Insulin Detemir 15 units 11/29/18 13:41 11/29/18 21:41 Levemir Vial SQ 15 units HS BRITTNY Administration Ranitidine HCl 150 mg 11/28/18 10:00 11/30/18 09:15 Zantac - PO 150 mg BID BRITTNY Administration ASSESSMENT/PLAN: This is a 38 year old man with a history of recently diagnosed DM who presented to the ED with nausea and vomiting. 1. DKA - Resolved 2. Type 2 DM, uncontrolled - HbA1c 11.8 - Levemir has been increased, Novolog 70/30 added, and pre-meal Novolog discontinued - Continue Novolog sliding scale 3. Sepsis (leukocytosis, tachycardia) secondary to right axilla abscess - s/p I&D on 5/10 - Leukocytosis and tachycardia resolved - Possible evolving deep abscess which would require I&D in OR tomorrow - Continue Zosyn 4. Hypokalemia - Continue to replete potassium 5. Hypophosphatemia - Improved 6. Obesity with BMI 35.9 Visit type - Emergency Visit Emergency Visit: Yes ED Registration Date: 11/27/18 Care time: The patient presented to the Emergency Department on the above date and was hospitalized for further evaluation of their emergent condition. - New Patient This patient is new to me today: No - Critical Care Critical Care patient: No - Discharge Referral Referred to [facility] Med P.C.: No
[2018-11-30] MEDS: ATORVASTATIN CA 20 MG TABLET (FP) PO SCH (21:17)
[2018-11-30] MEDS: INSULIN (LEVEMIR) 100 UNITS/ML UNITS SQ SCH (21:18)
[2018-12-01] MEDS ORDERED: PIPERACILLIN/TAZOBACTAM 3.375 GM VIAL IVPB ONE ×4 (00:10→09:39)
[2018-12-01] MEDS ORDERED: DEXTROSE 5%-WATER - 50 ML IVPB ONE ×2 (00:10→08:36)
[2018-12-01] MEDS: PIPERACILLIN/TAZOB 3.375 GM 3.375 GM in DEXTROSE 5%-WATER - 50 ML IVPB SCH ×3 (01:54→17:50)
[2018-12-01] MEDS: SODIUM CHLORIDE 0.45%/POT 20 MEQ/1,000 ML INFUS.BAG IV SCH (02:51)
[2018-12-01 06:19] LABS: BASO % 0.5 % (0-2.0); EOS % 2.5 % (0-4.5); HEMATOCRIT 37.2 % (35.4-49); HEMOGLOBIN 12.7 GM/dL (11.7-16.9); LYMPH % 33.5 % (8-40); MCH 26.5 pg (25.7-33.7); MEAN CELL VOLUME 77.9 fl (80-96); MEAN PLT VOLUME 8.6 fl (7.5-11.1); MONO % 7.3 % (3.8-10.2); NEUT % 56.2 % (42.8-82.8); PLATELET COUNT 185 K/MM3 (134-434); RBC 4.78 M/mm3 (4.00-5.60); RDW 14.5 % (11.9-15.9); WHITE BLOOD COUNT 7.1 K/mm3 (4.0-10.0)
[2018-12-01] MEDS: INSULIN SLIDING SCALE (NOVOLOG) 1 VIAL SQ SCH ×4 (06:37→22:27)
[2018-12-01 06:48] LABS: CALCIUM 8.4 mg/dL (8.5-10.1); CREATININE 0.4 mg/dL (0.55-1.3); MAGNESIUM 2.1 mg/dL (1.8-2.4); POTASSIUM 3.2 mmol/L (3.5-5.1)
[2018-12-01] MEDS: INSULIN (NOVOLOG MIX 70/30) 100 UNITS/ML MDV SQ SCH ×2 (06:57→19:41)
[2018-12-01] MEDS ORDERED: POTASSIUM CHLORIDE TABS 20 MEQ TABLET.ER (FP) PO ONE ×2 (09:13→12:06)
[2018-12-01] MEDS ORDERED: MIDAZOLAM HCL 2 MG/2 ML SINGLE DOSE VIAL ONE (09:21)
[2018-12-01] MEDS ORDERED: DEXAMETHASONE SOD PHOSPHATE 4 MG/1 ML VIAL ONE (09:22)
--- NOTE | 2018-12-01 10:09 | OP ---
Operative Note - Note: Operative Date: 12/01/18 Pre-Operative Diagnosis: abscess right axilla Operation: I and D right axilla Findings: abscess right axilla Post-Operative Diagnosis: Same as Pre-op Surgeon: Harjinder Reese Anesthesiologist/STAPLE SHEAR OPERATOR: Sherif Waters Anesthesia: General Specimens Removed: none Estimated Blood Loss (mls): 5 Drains & Tubes with Location: packing in abscess cavity
[2018-12-01] MEDS ORDERED: oxyCODONE HCL 5 MG TABLET PO PRN (10:21)
[2018-12-01] MEDS ORDERED: ACETAMINOPHEN 325 MG TABLET (FP) PO ONE (10:30)
[2018-12-01] MEDS ORDERED: oxyCODONE HCL 5 MG TABLET PO ONE (10:30)
--- NOTE | 2018-12-01 11:12 | PN ---
Progress Note, Physician - Current Medication List Current Medications: Active Medications Atorvastatin Calcium (Lipitor -) 20 mg PO HS [facility] Docusate Sodium (Colace -) 100 mg PO BID PRN PRN Reason: CONSTIPATION Enoxaparin Sodium (Lovenox -) 40 mg SQ DAILY [facility] Lactated Ringer's (Lactated Ringers Solution) 1,000 mls @ 125 mls/hr IV ASDIR BRITTNY Piperacillin Sod/Tazobactam (Sod 3.375 gm/ Dextrose) 50 mls @ 100 mls/hr IVPB Q8H-IV BRITTNY; Protocol Insulin Aspart (Novolog Mix 70/30 Vial) 20 units SQ BIDAC BRITTNY Insulin Aspart (Novolog Vial Sliding Scale -) 1 vial SQ ACHS BRITTNY; Protocol Insulin Detemir (Levemir Vial) 15 units SQ HS BRITTNY Oxycodone HCl (Roxicodone -) 10 mg PO Q4H PRN PRN Reason: PAIN LEVEL 6-10 Oxycodone HCl (Roxicodone -) 5 mg PO Q4H PRN PRN Reason: PAIN LEVEL 1-5 Ranitidine HCl (Zantac -) 150 mg PO BID [facility] - Objective Vital Signs: Vital Signs Temperature 97.6 F 12/01/18 10:07 Pulse Rate 64 12/01/18 10:50 Respiratory Rate 18 12/01/18 10:50 Blood Pressure 122/67 12/01/18 10:50 O2 Sat by Pulse Oximetry (%) 100 12/01/18 10:50 Labs: CBC, BMP 12/01/18 05:15 12/01/18 05:15
[2018-12-01] MEDS: ENOXAPARIN NA (PORCINE) 40 MG/0.4 ML DISP.SYRIN SQ SCH (11:31)
[2018-12-01] MEDS: RANITIDINE HCL 150 MG TABLET (FP) PO SCH ×2 (11:32→22:26)
[2018-12-01] MEDS: LACTATED RINGERS SOLUTION 1,000 ML IV SCH (11:40)
[2018-12-01] MEDS: oxyCODONE HCL 5 MG TABLET PO PRN ×2 (16:30→22:26)
--- NOTE | 2018-12-01 17:16 | PN ---
Progress Note, Physician Chief Complaint: abdominal pain History of Present Illness: Patient seen and examined at bedside. Feeling better after axilla I & D, less pain, no acute events overnight - Current Medication List Current Medications: Active Medications Atorvastatin Calcium (Lipitor -) 20 mg PO HS BRITTNY Docusate Sodium (Colace -) 100 mg PO BID PRN PRN Reason: CONSTIPATION Enoxaparin Sodium (Lovenox -) 40 mg SQ DAILY BRITTNY Lactated Ringer's (Lactated Ringers Solution) 1,000 mls @ 125 mls/hr IV ASDIR BRITTNY Last Admin: 12/01/18 11:40 Dose: 125 mls/hr Piperacillin Sod/Tazobactam (Sod 3.375 gm/ Dextrose) 50 mls @ 100 mls/hr IVPB Q8H-IV [facility]; Protocol Insulin Aspart (Novolog Mix 70/30 Vial) 20 units SQ BIDAC BRITTNY Insulin Aspart (Novolog Vial Sliding Scale -) 1 vial SQ ACHS [facility]; Protocol Last Admin: 12/01/18 11:47 Dose: 5 units Insulin Detemir (Levemir Vial) 15 units SQ HS [facility] Oxycodone HCl (Roxicodone -) 10 mg PO Q4H PRN PRN Reason: PAIN LEVEL 6-10 Last Admin: 12/01/18 16:30 Dose: 10 mg Oxycodone HCl (Roxicodone -) 5 mg PO Q4H PRN PRN Reason: PAIN LEVEL 1-5 Ranitidine HCl (Zantac -) 150 mg PO BID [facility] - Objective Vital Signs: Vital Signs Temperature 97.7 F 12/01/18 14:56 Pulse Rate 73 12/01/18 14:56 Respiratory Rate 18 12/01/18 14:56 Blood Pressure 115/63 12/01/18 14:56 O2 Sat by Pulse Oximetry (%) 100 12/01/18 12:45 Constitutional: Yes: Well Nourished, No Distress, Calm Cardiovascular: Yes: WNL, Regular Rate and Rhythm Respiratory: Yes: WNL, Regular, CTA Bilaterally Gastrointestinal: Yes: WNL, Normal Bowel Sounds, Soft, Abdomen, Obese Breast(s): Yes: Other (right axillary abscess is packed and wrapped, gauze with serosanguinous discharge, mild tenderness to palpation) Labs: CBC, BMP 12/01/18 05:15 12/01/18 05:15 Problem List - Problems (1) DKA (diabetic ketoacidoses) Code(s): E11.10 - TYPE 2 DIABETES MELLITUS WITH KETOACIDOSIS WITHOUT COMA Qualifiers: Diabetes mellitus type: type 2 Diabetes mellitus complication detail: without coma Qualified Code(s): E11.10 - Type 2 diabetes mellitus with ketoacidosis without coma (2) Axillary abscess Code(s): L02.419 - CUTANEOUS ABSCESS OF LIMB, UNSPECIFIED Assessment/Plan 38 year old man with a history of recently diagnosed DM who presented to the ED with nausea and vomiting 1. DKA, resolved. Uncontrolled diabetic-HbA1C 11.8% -better controlled on basal/bolus dosing -needs close outpatient followup -diabetic teaching and counseling -endo eval appreciated -should be started on aspirin 81 mg daily -started on statin -f/u outpatient, needs to be monitored closely, should also likely be on aceI if BP tolerates 2. Sepsis 2/2 right axilla abscess -s/p I&D on 11/28/18 and today -wound cx pending -c/w zosyn -ID following 3. Hypokalemia, replete and monitor -mag normal 4. Obesity with BMI 35.9 -nutrition and dietary eval 5. HLD -LDL > 130 -started on statin
[2018-12-01] MEDS ORDERED: INSULIN (LEVEMIR) 100 UNITS/ML UNITS SQ SCH (22:00)
[2018-12-01] MEDS: ATORVASTATIN CA 20 MG TABLET (FP) PO SCH (22:26)
[2018-12-01] MEDS ORDERED: INSULIN (LEVEMIR) 100 UNITS/ML UNITS SQ ONE (22:37)
[2018-12-02] MEDS ORDERED: DEXTROSE 5%-WATER - 50 ML IVPB ONE ×3 (02:37→16:45)
[2018-12-02] MEDS ORDERED: PIPERACILLIN/TAZOBACTAM 3.375 GM VIAL IVPB ONE ×3 (02:37→16:45)
[2018-12-02] MEDS: PIPERACILLIN/TAZOB 3.375 GM 3.375 GM in DEXTROSE 5%-WATER - 50 ML IVPB SCH ×3 (02:44→17:02)
[2018-12-02 06:38] LABS: BASO % 0.4 % (0-2.0); HEMATOCRIT 40.8 % (35.4-49); HEMOGLOBIN 13.7 GM/dL (11.7-16.9); LYMPH % 26.8 % (8-40); MCH 26.5 pg (25.7-33.7); MCHC 33.7 g/dl (32.0-35.9); MEAN CELL VOLUME 78.8 fl (80-96); MEAN PLT VOLUME 8.6 fl (7.5-11.1); MONO % 7.4 % (3.8-10.2); NEUT % 64.4 % (42.8-82.8); PLATELET COUNT 218 K/MM3 (134-434); RBC 5.18 M/mm3 (4.00-5.60); RDW 14.3 % (11.9-15.9); WHITE BLOOD COUNT 8.7 K/mm3 (4.0-10.0)
[2018-12-02] MEDS: INSULIN SLIDING SCALE (NOVOLOG) 1 VIAL SQ SCH ×4 (06:42→22:03)
[2018-12-02] MEDS: INSULIN (NOVOLOG MIX 70/30) 100 UNITS/ML MDV SQ SCH ×2 (06:43→16:55)
[2018-12-02] MEDS ORDERED: INSULIN (NOVOLOG) ASPART 100 UNITS/ML 10ML VIAL ONE ×3 (06:48→21:10)
[2018-12-02 06:57] LABS: CALCIUM 9.3 mg/dL (8.5-10.1); CREATININE 0.7 mg/dL (0.55-1.3); POTASSIUM 3.8 mmol/L (3.5-5.1)
--- NOTE | 2018-12-02 09:07 | PN ---
Progress Note (short form) - Note Progress Note: Attending Surgeon POD#1 No c/o VSS AF wounds-packing d/c'ed and both I/D sites w/o purulent d/c; no cellulitis; o/w negative. IMP: stable post op PLAN: [facility] Harjinder Reese MD FACS
[2018-12-02] MEDS: RANITIDINE HCL 150 MG TABLET (FP) PO SCH ×2 (09:21→22:01)
[2018-12-02] MEDS: DOCUSATE SODIUM 100 MG CAPSULE (FP) PO PRN (09:21)
[2018-12-02] MEDS: ENOXAPARIN NA (PORCINE) 40 MG/0.4 ML DISP.SYRIN SQ SCH (09:22)
[2018-12-02] MEDS ORDERED: INSULIN (LEVEMIR) 100 UNITS/ML UNITS SQ SCH (10:48)
--- NOTE | 2018-12-02 11:16 | PN ---
Physical Exam: SUBJECTIVE: Patient seen and examined at the bedside. has been on metformin and reports being compliant. when metformin was increased to 1000mg bid by his PCP, patient felt like that dose was too strong and he developed leg cramps. he went back to the metformin 850mg bid dosing on his own. OBJECTIVE: long discussion with patient explaining DMII, complications and need for close monitoring he will need insulin and he is aware and willing to self inject explained that he will need regular eye check ups as well as podiatry consult as an outpatient for nail cutting Vital Signs Period Temp Pulse Resp BP Sys/Esrtada Pulse Ox Last 24 Hr 97.7 F-97.9 F 60-86 18-20 115-132/63-88 100-100 GENERAL: The patient is awake, alert, and fully oriented, in no acute distress. HEAD: Normal with no signs of trauma. EYES: PERRL, extraocular movements intact, sclera anicteric, conjunctiva clear. No ptosis. ENT: Ears normal, nares patent, oropharynx clear without exudates, moist mucous membranes. NECK: Trachea midline, full range of motion, supple. ABDOMEN: Soft, nontender, nondistended, normoactive bowel sounds, no guarding, no rebound, no hepatosplenomegaly, no masses. EXTREMITIES: no edema. NEUROLOGICAL: Normal speech, gait not observed. PSYCH: Normal mood, normal affect. SKIN: right axilla dressing changed. Laboratory Results - last 24 hr 12/01/18 12/01/18 12/01/18 11:45 17:47 21:53 WBC RBC Hgb Hct MCV MCH MCHC RDW Plt Count MPV Absolute Neuts (auto) Neutrophils % Lymphocytes % Monocytes % Eosinophils % Basophils % Nucleated RBC % Sodium Potassium Chloride Carbon Dioxide Anion Gap BUN Creatinine Est GFR (CKD-EPI)AfAm Est GFR (CKD-EPI)NonAf POC Glucometer 224 353 284 Random Glucose Calcium 12/02/18 12/02/18 12/02/18 06:00 06:00 06:41 WBC 8.7 RBC 5.18 Hgb 13.7 Hct 40.8 MCV 78.8 L MCH 26.5 MCHC 33.7 RDW 14.3 Plt Count 218 MPV 8.6 Absolute Neuts (auto) 5.6 Neutrophils % 64.4 Lymphocytes % 26.8 Monocytes % 7.4 Eosinophils % 1.0 Basophils % 0.4 Nucleated RBC % 0 Sodium 140 Potassium 3.8 Chloride 98 Carbon Dioxide 32 Anion Gap 10 BUN 8 Creatinine 0.7 Est GFR (CKD-EPI)AfAm 139.73 Est GFR (CKD-EPI)NonAf 120.56 POC Glucometer 242 Random Glucose 252 H Calcium 9.3 Active Medications Generic Name Dose Route Start Last Admin Trade Name Freq PRN Reason Stop Dose Admin Atorvastatin Calcium 20 mg 12/01/18 22:00 12/01/18 22:26 Lipitor - PO 20 mg HS BRITTNY Administration Docusate Sodium 100 mg 12/01/18 10:45 12/02/18 09:21 Colace - PO 100 mg BID PRN Administration CONSTIPATION Enoxaparin Sodium 40 mg 12/02/18 10:00 12/02/18 09:22 Lovenox - SQ 40 mg DAILY BRITTNY Administration Piperacillin Sod/Tazobactam 50 mls @ 100 mls/hr 12/01/18 18:00 12/02/18 09:25 Sod 3.375 gm/ Dextrose IVPB 100 mls/hr Q8H-IV BRITTNY Administration Protocol Insulin Aspart 20 units 12/01/18 16:30 12/02/18 06:43 Novolog Mix 70/30 Vial SQ 20 units BIDAC BRITTNY Administration Insulin Aspart 1 vial 12/01/18 11:00 12/02/18 06:42 Novolog Vial Sliding Scale - SQ 5 units ACHS BRITTNY Administration Protocol Insulin Detemir 20 units 12/02/18 10:48 Levemir Vial SQ HS BRITTNY Oxycodone HCl 10 mg 12/01/18 10:21 12/01/18 22:26 Roxicodone - PO 10 mg Q4H PRN Administration PAIN LEVEL 6-10 Oxycodone HCl 5 mg 12/01/18 10:21 12/02/18 09:21 Roxicodone - PO 5 mg Q4H PRN Administration PAIN LEVEL 1-5 Ranitidine HCl 150 mg 12/01/18 22:00 12/02/18 09:21 Zantac - PO 150 mg BID BRITTNY Administration ASSESSMENT/PLAN: Patient is a 38 year old man with a history of recently diagnosed DM who presented to the ED with nausea and vomiting and was found to be in DKA. He also had a right axillary abscess s/p I&D on 11/28 and on 12/01. Endocrine: DKA. resolved. elevated hmga1c 11.8%. patient was on metformin and it was increased by his PCP for elevated blood sugars, but patient reports side effects of leg cramps so stopped taking the higher dose and continued taking lower dose of metformin. presented to the ED on 11/27/18 in DKA s/p insulin drip. BGMs better controlled. dietary consulted. will discharge patient on novolog and levemir based on sliding scale. he is willing to self inject. Surgery: Right axillary abscess s/p I&D. On Zosyn. wound culture pending. General obesity. dietary teaching started while hospitalized. continue as an outpatient. Card: HLD. on statin therapy. fen no ivf monitor electrolytes diabetic diet prophy lovenox 40mg Visit type - Emergency Visit Emergency Visit: Yes ED Registration Date: 11/27/18 Care time: The patient presented to the Emergency Department on the above date and was hospitalized for further evaluation of their emergent condition. - New Patient This patient is new to me today: Yes Date on this admission: 12/02/18 - Critical Care Critical Care patient: No - Discharge Referral Referred to [facility] Med P.C.: No
--- NOTE | 2018-12-02 11:58 | OP ---
DATE OF OPERATION: 12/01/2018 PREOPERATIVE DIAGNOSIS: Abscess of the right axilla. POSTOPERATIVE DIAGNOSIS: Abscess of the right axilla. PROCEDURE PERFORMED: Incision and drainage of abscess of the right axilla. SURGEON: Harjinder Reese MD ANESTHESIA: General. OPERATIVE FINDINGS: There was an extensive soft tissue abscess of the skin and subcutaneous tissue of the right axilla. The rest of the findings were unremarkable. DESCRIPTION OF PROCEDURE: The patient was placed on the operating table in the supine position. After the induction of general anesthesia, the patient's right axilla and chest wall were prepped with Betadine and draped in sterile fashion. The right upper extremity was abducted on the right. A time-out was taken, and then incision was made with a scalpel and taken down through the skin and subcutaneous tissue. Purulent drainage was sent to Microbiology for culture and sensitivity. All loculations were broken up using digital exploration. The wound was copiously irrigated with saline and bacitracin, and hemostasis was secured with electrocautery. The wound was packed 1-inch Iodoform gauze, followed by dry sterile dressings, and the procedure terminated at this point. The patient was aroused from general anesthesia transferred to the postanesthesia care unit in stable condition, awake and alert. ESTIMATED BLOOD LOSS: Minimal. DRAINS: Packing. SPECIMEN: Culture to Microbiology. I, Harjinder Reese, was physically present in the operating room from the time the patient was placed on the operating room table until he was transferred to the postanesthesia care unit in my accompaniment. MD LIS [id number] MTDD
--- NOTE | 2018-12-02 12:12 | PN ---
Progress Note, Physician - Current Medication List Current Medications: Active Medications Atorvastatin Calcium (Lipitor -) 20 mg PO HS [facility] Last Admin: 12/01/18 22:26 Dose: 20 mg Docusate Sodium (Colace -) 100 mg PO BID PRN PRN Reason: CONSTIPATION Last Admin: 12/02/18 09:21 Dose: 100 mg Enoxaparin Sodium (Lovenox -) 40 mg SQ DAILY [facility] Last Admin: 12/02/18 09:22 Dose: 40 mg Piperacillin Sod/Tazobactam (Sod 3.375 gm/ Dextrose) 50 mls @ 100 mls/hr IVPB Q8H-IV [facility]; Protocol Last Admin: 12/02/18 09:25 Dose: 100 mls/hr Insulin Aspart (Novolog Mix 70/30 Vial) 20 units SQ BIDAC [facility] Last Admin: 12/02/18 06:43 Dose: 20 units Insulin Aspart (Novolog Vial Sliding Scale -) 1 vial SQ [facility]; Protocol Last Admin: 12/02/18 06:42 Dose: 5 units Insulin Detemir (Levemir Vial) 20 units SQ [facility] Oxycodone HCl (Roxicodone -) 10 mg PO Q4H PRN PRN Reason: PAIN LEVEL 6-10 Last Admin: 12/01/18 22:26 Dose: 10 mg Oxycodone HCl (Roxicodone -) 5 mg PO Q4H PRN PRN Reason: PAIN LEVEL 1-5 Last Admin: 12/02/18 09:21 Dose: 5 mg Ranitidine HCl (Zantac -) 150 mg PO BID [facility] Last Admin: 12/02/18 09:21 Dose: 150 mg - Objective Vital Signs: Vital Signs Temperature 97.9 F 12/02/18 10:00 Pulse Rate 80 12/02/18 10:00 Respiratory Rate 18 12/02/18 10:00 Blood Pressure 116/88 12/02/18 10:00 O2 Sat by Pulse Oximetry (%) 100 12/01/18 21:00 Labs: CBC, BMP 12/02/18 06:00 12/02/18 06:00
[2018-12-02] MEDS: LACTATED RINGERS SOLUTION 1,000 ML IV SCH (13:51)
[2018-12-02] MEDS: oxyCODONE HCL 5 MG TABLET PO PRN (22:01)
[2018-12-02] MEDS: ATORVASTATIN CA 20 MG TABLET (FP) PO SCH (22:01)
--- NOTE | 2018-12-02 22:59 | PN ---
Progress Note, Physician Chief Complaint: feels comfortable using insulin pen - Current Medication List Current Medications: Active Medications Atorvastatin Calcium (Lipitor -) 20 mg PO HS [facility] Last Admin: 12/02/18 22:01 Dose: 20 mg Docusate Sodium (Colace -) 100 mg PO BID PRN PRN Reason: CONSTIPATION Last Admin: 12/02/18 09:21 Dose: 100 mg Enoxaparin Sodium (Lovenox -) 40 mg SQ DAILY [facility] Last Admin: 12/02/18 09:22 Dose: 40 mg Piperacillin Sod/Tazobactam (Sod 3.375 gm/ Dextrose) 50 mls @ 100 mls/hr IVPB Q8H-IV [facility]; Protocol Last Admin: 12/02/18 17:02 Dose: 100 mls/hr Insulin Aspart (Novolog Vial Sliding Scale -) 1 vial SQ ACHS [facility]; Protocol Last Admin: 12/02/18 22:03 Dose: 9 units Insulin Aspart (Novolog Mix 70/30 Vial) 30 units SQ BIDAC [facility] Last Admin: 12/02/18 16:55 Dose: 30 units Insulin Detemir (Levemir Vial) 20 units SQ HS [facility] Last Admin: 12/02/18 22:02 Dose: 20 units Oxycodone HCl (Roxicodone -) 10 mg PO Q4H PRN PRN Reason: PAIN LEVEL 6-10 Last Admin: 12/02/18 22:01 Dose: 10 mg Oxycodone HCl (Roxicodone -) 5 mg PO Q4H PRN PRN Reason: PAIN LEVEL 1-5 Last Admin: 12/02/18 09:21 Dose: 5 mg Ranitidine HCl (Zantac -) 150 mg PO BID [facility] Last Admin: 12/02/18 22:01 Dose: 150 mg - Objective Vital Signs: Vital Signs Temperature 98.0 F 12/02/18 18:00 Pulse Rate 70 12/02/18 18:00 Respiratory Rate 20 12/02/18 18:00 Blood Pressure 131/75 12/02/18 18:00 O2 Sat by Pulse Oximetry (%) 99 12/02/18 10:00 Constitutional: Yes: Calm Eyes: Yes: EOM Intact HENT: Yes: Normocephalic Neck: Yes: Trachea Midline Cardiovascular: Yes: Regular Rate and Rhythm Respiratory: Yes: CTA Bilaterally Gastrointestinal: Yes: Normal Bowel Sounds ...Rectal Exam: Yes: Deferred Musculoskeletal: Yes: WNL Extremities: Yes: WNL Wound/Incision: Yes: Dressing Dry and Intact Neurological: Yes: Alert, Oriented Labs: CBC, BMP 12/02/18 06:00 12/02/18 06:00 Problem List - Problems (1) DKA (diabetic ketoacidoses) Code(s): E11.10 - TYPE 2 DIABETES MELLITUS WITH KETOACIDOSIS WITHOUT COMA Qualifiers: Diabetes mellitus type: type 2 Diabetes mellitus complication detail: without coma Qualified Code(s): E11.10 - Type 2 diabetes mellitus with ketoacidosis without coma (2) Diabetes mellitus, new onset Code(s): E11.9 - TYPE 2 DIABETES MELLITUS WITHOUT COMPLICATIONS (3) Nausea Code(s): R11.0 - NAUSEA (4) Uncontrolled diabetes mellitus Code(s): E11.65 - TYPE 2 DIABETES MELLITUS WITH HYPERGLYCEMIA Assessment/Plan Current Active Problems Axillary abscess (Acute) DKA (diabetic ketoacidoses) (Acute) Hypokalemia (Acute) Abnormal Lab Results 12/02/18 12/02/18 06:00 06:00 MCV 78.8 L Random Glucose 252 H Laboratory Results - last 24 hr 12/02/18 12/02/18 12/02/18 06:00 06:00 06:41 WBC 8.7 RBC 5.18 Hgb 13.7 Hct 40.8 MCV 78.8 L MCH 26.5 MCHC 33.7 RDW 14.3 Plt Count 218 MPV 8.6 Absolute Neuts (auto) 5.6 Neutrophils % 64.4 Lymphocytes % 26.8 Monocytes % 7.4 Eosinophils % 1.0 Basophils % 0.4 Nucleated RBC % 0 Sodium 140 Potassium 3.8 Chloride 98 Carbon Dioxide 32 Anion Gap 10 BUN 8 Creatinine 0.7 Est GFR (CKD-EPI)AfAm 139.73 Est GFR (CKD-EPI)NonAf 120.56 POC Glucometer 242 Random Glucose 252 H Calcium 9.3 12/02/18 12/02/18 12/02/18 11:43 16:54 22:00 WBC RBC Hgb Hct MCV MCH MCHC RDW Plt Count MPV Absolute Neuts (auto) Neutrophils % Lymphocytes % Monocytes % Eosinophils % Basophils % Nucleated RBC % Sodium Potassium Chloride Carbon Dioxide Anion Gap BUNiu Creatinine Est GFR (CKD-EPI)AfAm Est GFR (CKD-EPI)NonAf POC Glucometer 284 397 258 Random Glucose Calcium plan: bgm qid novolog scale novolog 70 / 30 : 30iu bid levemir 20 units am follow out patient for diabetic management
[2018-12-03] MEDS ORDERED: PIPERACILLIN/TAZOBACTAM 3.375 GM VIAL IVPB ONE ×3 (02:40→16:18)
[2018-12-03] MEDS ORDERED: DEXTROSE 5%-WATER - 50 ML IVPB ONE ×3 (02:40→16:18)
[2018-12-03] MEDS: PIPERACILLIN/TAZOB 3.375 GM 3.375 GM in DEXTROSE 5%-WATER - 50 ML IVPB SCH ×3 (02:46→17:11)
[2018-12-03] MEDS: INSULIN (NOVOLOG MIX 70/30) 100 UNITS/ML MDV SQ SCH ×2 (06:54→17:02)
[2018-12-03] MEDS: INSULIN SLIDING SCALE (NOVOLOG) 1 VIAL SQ SCH ×3 (06:54→17:09)
[2018-12-03] MEDS: oxyCODONE HCL 5 MG TABLET PO PRN (06:55)
[2018-12-03] MEDS ORDERED: INSULIN (LEVEMIR) 100 UNITS/ML UNITS SQ SCH (07:00)
[2018-12-03] MEDS ORDERED: INSULIN (LEVEMIR) 100 UNITS/ML UNITS SQ ONE (07:02)
[2018-12-03] MEDS ORDERED: INSULIN (NOVOLOG) ASPART 100 UNITS/ML 10ML VIAL ONE (07:02)
[2018-12-03] MEDS ORDERED: INSULIN (NOVOLOG MIX 70/30) 100 UNITS/ML MDV SQ ONE ×2 (07:03→16:18)
[2018-12-03] MEDS: ENOXAPARIN NA (PORCINE) 40 MG/0.4 ML DISP.SYRIN SQ SCH (09:22)
[2018-12-03] MEDS: RANITIDINE HCL 150 MG TABLET (FP) PO SCH (09:22)
[2018-12-03] MEDS: DOCUSATE SODIUM 100 MG CAPSULE (FP) PO PRN (09:23)
[2018-12-03 10:42] LABS: BASO % 0.4 % (0-2.0); EOS % 2.3 % (0-4.5); HEMATOCRIT 41.6 % (35.4-49); HEMOGLOBIN 13.7 GM/dL (11.7-16.9); LYMPH % 29.3 % (8-40); MCH 26.3 pg (25.7-33.7); MEAN CELL VOLUME 79.9 fl (80-96); MEAN PLT VOLUME 8.7 fl (7.5-11.1); MONO % 9.3 % (3.8-10.2); NEUT % 58.7 % (42.8-82.8); PLATELET COUNT 209 K/MM3 (134-434); RBC 5.21 M/mm3 (4.00-5.60); RDW 14.9 % (11.9-15.9); WHITE BLOOD COUNT 8.4 K/mm3 (4.0-10.0)
[2018-12-03 12:05] LABS: ALBUMIN 3.2 g/dl (3.4-5.0); BILIRUBIN,TOTAL 0.6 mg/dL (0.2-1); CALCIUM 8.9 mg/dL (8.5-10.1); CREATININE 0.7 mg/dL (0.55-1.3); MAGNESIUM 2.2 mg/dL (1.8-2.4); POTASSIUM 3.7 mmol/L (3.5-5.1); TOT PROT 5.9 g/dl (6.4-8.2)
--- NOTE | 2018-12-03 13:26 | PN ---
Progress Note, Physician History of Present Illness: patient doing well no new issues - Current Medication List Current Medications: Active Medications Atorvastatin Calcium (Lipitor -) 20 mg PO HS [facility] Last Admin: 12/02/18 22:01 Dose: 20 mg Docusate Sodium (Colace -) 100 mg PO BID PRN PRN Reason: CONSTIPATION Last Admin: 12/03/18 09:23 Dose: 100 mg Enoxaparin Sodium (Lovenox -) 40 mg SQ DAILY [facility] Last Admin: 12/03/18 09:22 Dose: 40 mg Piperacillin Sod/Tazobactam (Sod 3.375 gm/ Dextrose) 50 mls @ 100 mls/hr IVPB Q8H-IV [facility]; Protocol Last Admin: 12/03/18 09:22 Dose: 100 mls/hr Insulin Aspart (Novolog Vial Sliding Scale -) 1 vial SQ ACHS [facility]; Protocol Last Admin: 12/03/18 11:18 Dose: 8 units Insulin Aspart (Novolog Mix 70/30 Vial) 30 units SQ BIDAC [facility] Last Admin: 12/03/18 06:54 Dose: 30 units Insulin Detemir (Levemir Vial) 20 units SQ AM [facility] Last Admin: 12/03/18 06:53 Dose: 20 units Oxycodone HCl (Roxicodone -) 10 mg PO Q4H PRN PRN Reason: PAIN LEVEL 6-10 Last Admin: 12/03/18 06:55 Dose: 10 mg Oxycodone HCl (Roxicodone -) 5 mg PO Q4H PRN PRN Reason: PAIN LEVEL 1-5 Last Admin: 12/02/18 09:21 Dose: 5 mg Ranitidine HCl (Zantac -) 150 mg PO BID [facility] Last Admin: 12/03/18 09:22 Dose: 150 mg - Objective Vital Signs: Vital Signs Temperature 97.9 F 12/03/18 09:21 Pulse Rate 93 H 12/03/18 09:21 Respiratory Rate 18 12/03/18 09:21 Blood Pressure 130/70 12/03/18 09:21 O2 Sat by Pulse Oximetry (%) 100 12/03/18 10:00 Constitutional: Yes: No Distress, Calm Cardiovascular: Yes: Regular Rate and Rhythm Respiratory: Yes: Regular, CTA Bilaterally Gastrointestinal: Yes: Normal Bowel Sounds, Soft Musculoskeletal: Yes: WNL Wound/Incision: Yes: Dressing Dry and Intact Neurological: Yes: Alert, Oriented Labs: CBC, BMP 12/03/18 10:05 Assessment/Plan 38 year old man with a history of recently diagnosed DM who presented to the ED with nausea and vomiting. 1. DKA 2. Type 2 DM, uncontrolled 3. Sepsis 4. Hypokalemia 5. Hypophosphatemia 6. Obesity with BMI 35.9 leukocytosis continue abx await for sensitivities wound care rest as per the team
--- NOTE | 2018-12-03 14:39 | DS ---
Physical Exam: SUBJECTIVE: Patient seen and examined feels well, comfortable with injecting himself for insulin as well as checking his bgms. He has been taught by staff and teachback is successfull. OBJECTIVE: discharge home with VNS follow up for wound care and insulin reinforcement/ diabetic teaching and compliance. Vital Signs Period Temp Pulse Resp BP Sys/Estrada Pulse Ox Last 24 Hr 97.5 F-98.0 F 61-93 18-20 114-139/49-77 99-100 PHYSICAL EXAM GENERAL: The patient is awake, alert, and fully oriented, in no acute distress. HEAD: Normal with no signs of trauma. EYES: PERRL, extraocular movements intact, sclera anicteric, conjunctiva clear. No ptosis. ENT: Ears normal, nares patent, oropharynx clear without exudates, moist mucous membranes. NECK: Trachea midline, full range of motion, supple. ABDOMEN: Soft, nontender, nondistended, normoactive bowel sounds, no guarding, no rebound, no hepatosplenomegaly, no masses. EXTREMITIES: no edema. NEUROLOGICAL: Normal speech, gait not observed. PSYCH: Normal mood, normal affect. SKIN: right axilla dressing changed. LABS Laboratory Results - last 24 hr 12/02/18 12/02/18 12/03/18 16:54 22:00 06:52 WBC RBC Hgb Hct MCV MCH MCHC RDW Plt Count MPV Absolute Neuts (auto) Neutrophils % Lymphocytes % Monocytes % Eosinophils % Basophils % Nucleated RBC % Sodium Potassium Chloride Carbon Dioxide Anion Gap BUN Creatinine Est GFR (CKD-EPI)AfAm Est GFR (CKD-EPI)NonAf POC Glucometer 397 258 152 Random Glucose Calcium Magnesium Total Bilirubin AST ALT Alkaline Phosphatase Total Protein Albumin 12/03/18 12/03/18 12/03/18 10:05 10:05 11:17 WBC 8.4 RBC 5.21 Hgb 13.7 Hct 41.6 MCV 79.9 L MCH 26.3 MCHC 33.0 RDW 14.9 Plt Count 209 MPV 8.7 Absolute Neuts (auto) 5.0 Neutrophils % 58.7 Lymphocytes % 29.3 Monocytes % 9.3 Eosinophils % 2.3 D Basophils % 0.4 Nucleated RBC % 0 Sodium 138 Potassium 3.7 Chloride 98 Carbon Dioxide 34 H Anion Gap 6 L BUN 9 Creatinine 0.7 Est GFR (CKD-EPI)AfAm 139.73 Est GFR (CKD-EPI)NonAf 120.56 POC Glucometer 241 Random Glucose 207 H Calcium 8.9 Magnesium 2.2 Total Bilirubin 0.6 AST 34 ALT 43 Alkaline Phosphatase 196 H Total Protein 5.9 L Albumin 3.2 L HOSPITAL COURSE: Date of Admission:11/27/18 Date of Discharge: 12/03/18 Patient is a 38 year old man with a history of recently diagnosed DM who presented to the ED with nausea and vomiting and was found to be in DKA. He also had a right axillary abscess s/p I&D on 11/28 and on 12/01. Endocrine: DKA. resolved. elevated hmga1c 11.8%. patient was on metformin and it was increased by his PCP for elevated blood sugars, but patient reports side effects of leg cramps so stopped taking the higher dose and continued taking lower dose of metformin. presented to the ED on 11/27/18 in DKA and is now s/p insulin drip. BGMs better controlled. dietary consulted and following. [employer] following and recommendations appreciated. discussed with Dr. Stock. Patient to be sent home on Novolin 70/30 TID based on blood sugars. He will follow up with Dr. Stock for continued diabetic control. Surgery: Right axillary abscess s/p I&D. treated with Zosyn. wound culture noted. to be sent home on Augmentin BID x 7 days per ID. General obesity. dietary teaching started while hospitalized. continue as an outpatient. Card: HLD. on statin therapy. disposition: discharge home with VNS. Minutes to complete discharge: 60 Discharge Summary Reason For Visit: DIABETIC KETOACIDOSIS Current Active Problems Axillary abscess (Acute) DKA (diabetic ketoacidoses) (Acute) Hypokalemia (Acute) Condition: Fair - Instructions Diet, Activity, Other Instructions: Mr. Orozco: You were admitted with diabetic ketoacidosis and NOW your blood sugars are not stable. Here are our recommendations: Tracking Your Blood Sugar Consistently testing and tracking the blood sugar levels you and your doctor have agreed on can tell you how well your type 2 diabetes plan is working. You and your doctor will likely have target levels that are best suited for you. What should your blood sugar be? Checking your blood sugar levels is important, but keeping track of them in a written logbook will help you spot trends of blood sugar levels that are too high or too low. Be sure to discuss your levels with your doctor. Keep in mind that if you have recently started a new type 2 diabetes therapy, it may take some time to see the results you expect. Be sure to discuss with your doctor how long it should take before you see an improvement in your blood sugar levels. Self-monitoring measures blood sugar levels at the time of the test, so its important that your doctor also tests your A1C to see how well your blood sugar is being managed over time The A1C test measures your average blood sugar level over the previous 2 to 3 months, and results are given as a percentage, called your A1C level. The higher your A1C level, the more sugar you have in your blood. We will be sending you on SHORT ACTING and LONG ACTING INSULIN called NOVOLOG 70/30. They both work to help decrease the blood sugar in your blood. THE short acting insulin is given before meals. Therefore, take your blood sugar 15 minutes before you eat. three times per day. HUMOLOG SLIDING SCALE: IF YOUR BLOOD SUGAR IS: GIVE YOURSELF THIS MUCH INSULIN: 150 OR GREATER 15 UNITS OF NOVOLIN 70/30 TWICE PER DAY at 8am and 5pm 151-200 20 UNITS OF NOVOLIN 70/30 TWICE PER DAY at 8am and 5pm 201-350 30 UNITS OF NOVOLIN 70/30 TWICE PER DAY at 8am and 5pm Please follow up with Dr. Stock. Wound Care Right Axilla, clean with sterile saline and cover with dressing. daily dressing changes. Take Augmentin 500mg twice per day for 7 more days Please let me know if you have any questions. Tiffany Bowie NP [facility] [phone] - call and ask for me if you have questions. Referrals: Reyes Stock MD [Staff Physician] - (call for an appointment) Luca Farnsworth [Non Staff, Medical] - (appointment for december 11 at 1:15pm. bring your discharge paperwork with you) Disposition: HOME - Home Medications Comprehensive Discharge Medication List: Ambulatory Orders Alcohol Antiseptic Pads [Alcohol Prep Pads] 1 each TP ACHS #100 med..pad Atorvastatin Ca [Lipitor] 20 mg PO HS #30 tablet 12/03/18 Insulin NPH Hum/Reg Insulin Hm [Novolin 70-30 100 Unit/ml Vial] 100 unit SQ TID #2 vial 12/03/18 Syringe, Disposable, 30 ml [Luer Lock Syringe] 1 each MC TID #100 disp.syrin This patient is new to me today: No Emergency Visit: Yes ED Registration Date: 11/27/18 Care time: The patient presented to the Emergency Department on the above date and was hospitalized for further evaluation of their emergent condition. Critical Care patient: No - Discharge Referral Referred to [facility] Med P.C.: No
[2018-12-03 15:30] VITALS: BP 117/55; PULSE 80; TEMP 98.1
== END 2018-12-03 18:24 | disposition home health service (06) | DRG 638 ==
LOC: JER 00:07 → JERBED 04:44 → J5S 13:59
PROVIDERS: ADMIT Internal Medicine; ATTEND Nurse Practitioner Family
PROC: 0X943ZZ Drainage of Right Axilla, Percutaneous Approach (ICD-10-PCS; 2018-11-28)
PROC: 0X943ZX Drainage of Right Axilla, Percutaneous Approach, Diagnostic (ICD-10-PCS; principal; 2018-12-01 12:00)
DX: E11.10 Type 2 diabetes mellitus with ketoacidosis without coma (principal); L02.411 Cutaneous abscess of right axilla; B96.5 Pseudomonas (aeruginosa) (mallei) (pseudomallei) as the cause of diseases classified elsewhere; Z79.84 Long term (current) use of oral hypoglycemic drugs; D72.829 Elevated white blood cell count, unspecified; E66.9 Obesity, unspecified; Z68.35 Body mass index [BMI] 35.0-35.9, adult; K21.9 Gastro-esophageal reflux disease without esophagitis; E86.0 Dehydration; E87.6 Hypokalemia; E83.39 Other disorders of phosphorus metabolism; K59.00 Constipation, unspecified
CPT/HCPCS: 36415; 71045-TC-FY; 76700-TC; 80048; 80053; 80061; 80307; 81003; 82009; 82010; 82803; 82962; 83036; 83605; 83690; 83721; 83735; 83930; 83935; 84100; 84484; 85025; 85027; 87070; 87186; 87205; 93005; 93010; 94760; 99285-25; J3480; J7030

== ENCOUNTER 2022-11-24 16:26 | Emergency (ER) | payer BC ==
[2022-11-24 16:34] VITALS: BP 154/89; PULSE 72; RESP 18; TEMP 97.9; BMI 36.0
[2022-11-24] MEDS ORDERED: ACETAMINOPHEN 325 MG TABLET (FP) PO ONE (16:54)
[2022-11-24] MEDS ORDERED: ACETAMINOPHEN 325 MG TABLET (FP) ONE ×2 (16:59→17:50)
[2022-11-24 19:29] LABS: URINE APPEARANCE CLEAR; URINE BILIRUBIN NEGATIVE (NEGATIVE); URINE COLOR YELLOW; URINE GLUCOSE (UA) 3+ (NEGATIVE); URINE KETONE NEGATIVE (NEGATIVE); URINE LEUK ESTERASE NEGATIVE (NEGATIVE); URINE NITRITE NEGATIVE (NEGATIVE); URINE PROTEIN NEGATIVE (NEGATIVE); URINE UROBILINOGEN 0.2 mg/dL (0.2-1.0)
== END 2022-11-24 20:23 | disposition home or self-care (01) ==
LOC: JER 16:26
DX: R10.32 Left lower quadrant pain (principal); N50.812 Left testicular pain
CPT/HCPCS: 74176-TC; 76870-TC; 81003; 87086; 99285-25

== ENCOUNTER 2023-07-28 19:05 | Emergency (ER) | payer BC ==
[2023-07-28 19:18] VITALS: BP 150/87; PULSE 90; RESP 18; TEMP 97.9; BMI 36.0
[2023-07-28] MEDS ORDERED: FAMOTIDINE 10 MG TABLET PO ONE (20:50)
[2023-07-28] MEDS ORDERED: hydrOXYzine PAMOATE 25 MG CAPSULE (FP) PO ONE ×2 (20:50→20:56)
[2023-07-28] MEDS ORDERED: predniSONE 20 MG TABLET (UD) ONE (20:56)
[2023-07-28] MEDS ORDERED: predniSONE 10 MG TABLET (UD) ONE (20:56)
[2023-07-28] MEDS ORDERED: FAMOTIDINE 20 MG TABLET ONE ×2 (20:56)
[2023-07-28] MEDS ORDERED: predniSONE 20 MG TABLET (UD) PO SCH (21:00)
== END 2023-07-28 21:27 | disposition home or self-care (01) ==
LOC: JERFT 19:05
DX: L29.9 Pruritus, unspecified (principal); R21 Rash and other nonspecific skin eruption; L50.0 Allergic urticaria; L23.9 Allergic contact dermatitis, unspecified cause
CPT/HCPCS: 99283-25